=== PATIENT | female | born 1980 | race Caucasian/White ===

== ENCOUNTER 2018-05-05 15:10 | Emergency (ER) | payer OTHER ==
--- NOTE | 2018-05-05 17:41 | ED ---
Anxiety HPI - General Chief Complaint: Anxiety Stated Complaint: Anxiety Time Seen by Provider: 05/05/18 16:48 Source: patient Mode of arrival: ambulatory - History of Present Illness Initial Comments: 37-year-old female past history of anxiety and OCD presents today for chief complaint of uncontrolled obsessive-compulsive thoughts. Patient states that she recently changed doctors and has been off her medications for 2 months, she was recently resumed on her medications one week ago. She states her medications are Prozac and triptel. She states that about a month ago there was an incident at work which causes increased anxiety, she states that since her obsessive thoughts and compulsions have been taking overlying. She states she has to, a certain number for everything including when getting out of bed, while turning on and off lights, she states she has washed her hands for a certain amount of times and uses safe phrases with family or she has significant intrusion of negative thoughts as though something terrible was going to happen to her family or herself. Patient states she is unable to control these and her medications do not seem to be helping. Patient states she has tried Xanax in the past however this only worsened symptoms. Patient does see a psychiatrist Dr. Mock. Patient states today her up since the thoughts have been out of control, she states she has severe feeling of impeding doom. She has not been able to control compulsions with a fourths. Patient states his affect her life she is unable to get out of bed she has not gone to work in a week and a half. Patient presents today for evaluation, denies any previous hospitalizations. Remainder of ROS negative, patient denies any recent fever, chills, shortness of breath, chest pain, back pain, abdominal pain, nausea or vomiting, numbness or tingling, dysuria or hematuria, constipation or diarrhea, headaches or visual changes, or any other complaints. Patient denies any suicidal or homicidal ideations. - Related Data Home Medications: Home Medications Medication Instructions Recorded Confirmed FLUoxetine HCL [PROzac] 40 mg PO HS 05/05/18 05/05/18 OXcarbazepine [Trileptal] 150 mg PO BID 05/05/18 05/05/18 Previous Rx's Medication Instructions Recorded Sulfamethox-Tmp 800-160Mg [Bactrim 1 tab PO Q12HR 7 Days #14 tab 05/05/18 DS 800-160 mg] Allergies/Adverse Reactions: Allergies Allergy/AdvReac Type Severity Reaction Status Date / Time kiwi Allergy Unknown Verified 05/05/18 16:55 Penicillins Allergy Unknown Verified 05/05/18 16:55 Review of Systems ROS Statement: Those systems with pertinent positive or pertinent negative responses have been documented in the HPI. ROS Other: All systems not noted in ROS Statement are negative. Past Medical History Past Medical History: No Reported History History of Any Multi-Drug Resistant Organisms: None Reported Past Surgical History: No Surgical Hx Reported Past Psychological History: Anxiety, Bipolar, Depression Smoking Status: Never smoker Past Alcohol Use History: None Reported Past Drug Use History: None Reported General Exam - General Exam Comments Initial Comments: General: The patient is awake and alert, clenching jaw Eye: Pupils are equal, round and reactive to light, extra-ocular movements are intact. No nystagmus. There is normal conjunctiva bilaterally. No signs of icterus. Ears, nose, mouth and throat: There are moist mucous membranes and no oral lesions. Neck: The neck is supple, there is no tenderness or JVD. Cardiovascular: There is a regular rate and rhythm. No murmur, rub or gallop is appreciated. Respiratory: Lungs are clear to auscultation, respirations are non-labored, breath sounds are equal. No wheezes, stridor, rales, or rhonchi. Gastrointestinal: Soft, non-distended, non-tender abdomen without masses or organomegaly noted. There is no rebound or guarding present. Musculoskeletal: Normal ROM, no tenderness. Strength 5/5. Sensation intact. Pulses equal bilaterally 2+. Neurological: A&O x 3. CN II-XII intact, There are no obvious motor or sensory deficits. Coordination appears grossly intact. Speech is normal. Skin: Skin is warm and dry and no rashes or lesions are noted. Psychiatric: Cooperative, appropriate mood & affect, normal judgment. Limitations: no limitations Course Vital Signs 05/05/18 15:32 Temperature 97.9 F Pulse Rate 97 Respiratory 16 Rate Blood Pressure 132/89 O2 Sat by Pulse 97 Oximetry Medical Decision Making - Medical Decision Making 37-year-old presenting for OCD sitting today for chief complaint of worsening obsessive compulsive ideations and actions. Patient states she has been off her medications for over 2 months. She just resumed her Prozac for the past week. This is not a therapeutic amount of time. Pt has psychiatrist but presented for worsening symptoms. pt medically cleared for EPS evaluation. urinalysis revealed bacteria, and leukocyte esterase we'll treat with Bactrim. Psych recommended discharge with outpatient therapy. Patient was given resources. Patient states she prefers outpatient treatment versus inpatient. At this time A couple changing medications I recommended patient follow-up with psychiatrist. Patient was given 1 mg of Ativan by mouth for anxiety. Patient states this helped a little bit but not much. I did discuss the case attending provider Dr. Nixon. At this time he is agreeable discharge and plan. Patient discharged stable condition appearing well continued to deny any suicidal or homicidal ideations. - Lab Data Lab Results 05/05/18 Range/Units 17:54 Urine Color Yellow Urine Appearance Turbid H (Clear) Urine pH 5.5 (5.0-8.0) Ur Specific [place] 1.028 (1.001-1.035) Urine Protein 1+ H (Negative) Urine Glucose (UA) Negative (Negative) Urine Ketones 1+ H (Negative) Urine Blood Trace H (Negative) Urine Nitrite Negative (Negative) Urine Bilirubin Negative (Negative) Urine Urobilinogen 2.0 (<2.0) mg/dL Ur Leukocyte Esterase Large H (Negative) Urine RBC 38 H (0-5) /hpf Urine WBC 128 H (0-5) /hpf Ur Squamous Epith Cells 13 H (0-4) /hpf Urine Bacteria Many H (None) /hpf Urine Mucus Many H (None) /hpf Urine Opiates Screen Not Detected (NotDetected) Ur Oxycodone Screen Not Detected (NotDetected) Urine Methadone Screen Not Detected (NotDetected) Ur Propoxyphene Screen Not Detected (NotDetected) Ur Barbiturates Screen Not Detected (NotDetected) U Tricyclic Antidepress Not Detected (NotDetected) Ur Phencyclidine Scrn Not Detected (NotDetected) Ur Amphetamines Screen Not Detected (NotDetected) U Methamphetamines Scrn Not Detected (NotDetected) U Benzodiazepines Scrn Not Detected (NotDetected) Urine Cocaine Screen Not Detected (NotDetected) U Marijuana (THC) Screen Not Detected (NotDetected) Disposition Clinical Impression: OCD (obsessive compulsive disorder), UTI (urinary tract infection) Disposition: HOME SELF-CARE Instructions (If sedation given, give patient instructions): Obsessive Compulsive Disorder (DC), Generalized Anxiety Disorder (ED) Additional Instructions: Please use medication as discussed. Please follow-up with your family doctor and psychiatrist. Please use resources as provided by EPS nurse.. Please return to emergency room if the symptoms increase or worsen or for any other concerns. Prescriptions: Sulfamethox-Tmp 800-160Mg [Bactrim DS 800-160 mg] 1 tab PO Q12HR 7 Days #14 tab Is patient prescribed a controlled substance at d/c from ED?: No Referrals: Holden Rose MD [Primary Care Provider] - 1-2 days Time of Disposition: 19:00
[2018-05-05] MEDS ORDERED: LORazepam 1 MG TAB PO STA (18:34)
[2018-05-05 18:41] LABS: Appearance,Urine Turbid (Clear); Bacteria,Urine Many /hpf; Bilirubin,Urine Negative (Negative); Blood,Urine Trace (Negative); Color,Urine Yellow; Glucose,Urine (UA) Negative (Negative); Ketones,Urine 1+ (Negative); Leukocyte Esterase,Urine Large (Negative); Mucus,Urine Many /hpf; Nitrite,Urine Negative (Negative); PH, Urine 5.5 (5.0-8.0); Protein,Urine 1+ (Negative); RBC,Urine 38 /hpf (0-5); Specific Gravity,Urine 1.028 (1.001-1.035); Squamous Epithelial Cell,Urine 13 /hpf (0-4); WBC,Urine 128 /hpf (0-5)
[2018-05-05 18:46] LABS: Amphetamine Screen,Urine Not Detected (NotDetected); Barbiturate Screen,Urine Not Detected (NotDetected); Benzodiazepines Screen,Urine Not Detected (NotDetected); Cocaine Screen,Urine Not Detected (NotDetected); Methadone Screen, Urine Not Detected (NotDetected); Opiate Screen,Urine Not Detected (NotDetected); Oxycodone Screen, Urine Not Detected (NotDetected); Phencyclidine Screen,Urine Not Detected (NotDetected); Tricyclic Antidepressant,Urine Not Detected (NotDetected); Urn Cannabinoid Scrn Not Detected (NotDetected)
[2018-05-05 19:31] VITALS: BP 136/89; PULSE 92; RESP 18; TEMP 98.6
== END 2018-05-05 19:30 | disposition home or self-care (01) ==
LOC: EC 15:10
DX: F42.9 Obsessive-compulsive disorder, unspecified (principal); N39.0 Urinary tract infection, site not specified; F41.9 Anxiety disorder, unspecified; F32.9 Major depressive disorder, single episode, unspecified; Z79.899 Other long term (current) drug therapy; Z91.018 Allergy to other foods; Z88.0 Allergy status to penicillin
CPT/HCPCS: 80306; 81001; 99283

== ENCOUNTER 2019-01-07 15:57 | Emergency (ER) | payer OTHER ==
[2019-01-07 16:16] VITALS: BP 123/77; PULSE 92; RESP 18; TEMP 97.9
[2019-01-07] MEDS ORDERED: HYDROcodone/APAP 5-325MG 1 EACH TAB PO STA (16:20)
--- NOTE | 2019-01-07 16:58 | XR ---
EXAMINATION TYPE: XR ankle complete LT DATE OF EXAM: 01/07/2019 COMPARISON: NONE HISTORY: Fall. Pain. TECHNIQUE: 3 views FINDINGS: There is soft tissue swelling over the lateral malleolus. Ankle mortise is anatomic. Joint spaces are normal. IMPRESSION: Soft tissue swelling. No fracture seen.
--- NOTE | 2019-01-07 17:00 | XR ---
EXAMINATION TYPE: XR tibia fibula LT DATE OF EXAM: 01/07/2019 COMPARISON: NONE HISTORY: Pain. Injury. TECHNIQUE: 4 views FINDINGS: Tibia and fibula appear intact. I see no fracture nor dislocation. Joint spaces are normal. There is soft tissue swelling over the lateral malleolus. IMPRESSION: Soft tissue swelling. No fracture.
--- NOTE | 2019-01-07 17:01 | XR ---
EXAMINATION TYPE: XR foot complete LT DATE OF EXAM: 01/07/2019 COMPARISON: NONE HISTORY: Pain TECHNIQUE: 3 views FINDINGS: Metatarsals are intact. I see no fracture nor dislocation. Joint spaces are normal. IMPRESSION: Negative left foot exam. No fracture seen.
--- NOTE | 2019-01-07 17:10 | ED ---
General Adult HPI - General Chief complaint: Extremity Injury, Lower Stated complaint: LEFT ANKLE INJURY Time Seen by Provider: 01/07/19 16:15 Source: patient, family, RN notes reviewed, old records reviewed Mode of arrival: wheelchair Limitations: physical limitation - History of Present Illness Initial comments: This is a 38-year-old female present emergency department today with a old left ankle. Patient reports that she was sitting on a couch, and her leg fell asleep. Patient reports that then she stood up, and rolled her left ankle. Complains of pain radiating towards her leg. Patient has had no previous broken bones with a history of sprains of this ankle before. She reports that she does have some pain going up the lower leg. - Related Data Home Medications Medication Instructions Recorded Confirmed ARIPiprazole [Abilify] 5 mg PO HS 01/07/19 01/07/19 FLUoxetine HCL [PROzac] 80 mg PO DAILY 01/07/19 01/07/19 clonazePAM 2 mg PO HS 01/07/19 01/07/19 clonazePAM [KlonoPIN] 0.5 mg PO QAM 01/07/19 01/07/19 Previous Rx's Medication Instructions Recorded Ibuprofen [Motrin] 600 mg PO Q6HR PRN #20 tab 01/07/19 Allergies Allergy/AdvReac Type Severity Reaction Status Date / Time Penicillins Allergy Rash/Hives Verified 01/07/19 16:56 kiwi AdvReac Nausea & Verified 01/07/19 16:56 Vomiting Review of Systems ROS Statement: Those systems with pertinent positive or pertinent negative responses have been documented in the HPI. ROS Other: All systems not noted in ROS Statement are negative. Past Medical History Past Medical History: No Reported History History of Any Multi-Drug Resistant Organisms: None Reported Past Surgical History: No Surgical Hx Reported Past Psychological History: Anxiety, Bipolar, Depression Smoking Status: Never smoker Past Alcohol Use History: None Reported Past Drug Use History: None Reported General Exam - General Exam Comments Initial Comments: 38-year-old female. No distress. Limitations: physical limitation General appearance: alert, in no apparent distress Head exam: Present: atraumatic Eye exam: Present: normal appearance, PERRL, EOMI. Absent: scleral icterus, conjunctival injection, periorbital swelling ENT exam: Present: normal exam, mucous membranes moist Neck exam: Present: normal inspection. Absent: tenderness, meningismus, lymphadenopathy Respiratory exam: Present: normal lung sounds bilaterally. Absent: respiratory distress, wheezes, rales, rhonchi, stridor Cardiovascular Exam: Present: regular rate, normal rhythm, normal heart sounds. Absent: systolic murmur, diastolic murmur, rubs, gallop, clicks GI/Abdominal exam: Present: soft, normal bowel sounds. Absent: distended, tenderness, guarding, rebound, rigid Extremities exam: Present: normal inspection, full ROM, normal capillary refill. Absent: tenderness, pedal edema, joint swelling, calf tenderness Left Lower Leg exam: Present: normal inspection, full ROM, tenderness Ankle exam: Absent: normal inspection, full ROM (Chest pain with plantar dorsiflexion. Evidence of significant swelling over the lateral malleolus.) Foot/Toe exam: Present: normal inspection Neurovascular tendon exam: Present: no vascular compromise Gait: observed and normal Back exam: Present: normal inspection Neurological exam: Present: alert, oriented X3, CN II-XII intact Psychiatric exam: Present: normal affect, normal mood Course Vital Signs 01/07/19 16:12 Temperature 97.9 F Pulse Rate 92 Respiratory 18 Rate Blood Pressure 123/77 O2 Sat by Pulse 97 Oximetry Medical Decision Making - Medical Decision Making 38-year-old female presents today for evaluation for left ankle pain after she rolled it. She reports her leg fell asleep and she sitting on the couch and stood up, and had a lateral rolled her ankle. She has diffuse swelling over lateral malleolus, pain junk with plantar dorsiflexion. She states the pain radiating up her leg. Tib-fib x-ray was completed as well as foot and ankle. No evidence of acute fracture but evidence of soft tissue swelling is noted. She is neurovascularly intact. Patient is given Duane wrap and ankle stirrup Aircast. Discussed the Patient follow-up with primary care doctor or so. All questions were answered. - Radiology Data Radiology results: report reviewed Negative left foot exam. No fracture noted. X-ray of the tib-fib shows evidence of soft tissue swelling. No acute fractures. Ankle x-ray shows soft tissue swelling. No acute fracture seen. Disposition Clinical Impression: Ankle sprain Disposition: HOME SELF-CARE Condition: Good Instructions (If sedation given, give patient instructions): Ankle Sprain (ED) Additional Instructions: Please use medication as discussed. Please follow up with family doctor and ortho if symptoms have not improved over the next two days. Please return to the emergency room if your symptoms increase or worsen or for any other concerns. Prescriptions: Ibuprofen [Motrin] 600 mg PO Q6HR PRN #20 tab PRN Reason: Pain Is patient prescribed a controlled substance at d/c from ED?: No Referrals: Holden Rose MD [Primary Care Provider] - 1-2 days Ki West MD [STAFF PHYSICIAN] - 1-2 days Time of Disposition: 17:09
== END 2019-01-07 17:30 | disposition home or self-care (01) ==
LOC: EC 15:57
DX: S93.402A Sprain of unspecified ligament of left ankle, initial encounter (principal); F31.9 Bipolar disorder, unspecified; F41.9 Anxiety disorder, unspecified; Z88.0 Allergy status to penicillin; Z91.018 Allergy to other foods; Z79.899 Other long term (current) drug therapy; W18.39XA Other fall on same level, initial encounter; Y93.89 Activity, other specified; Y92.009 Unspecified place in unspecified non-institutional (private) residence as the place of occurrence of the external cause
CPT/HCPCS: 99284

== ENCOUNTER 2020-03-06 11:58 | Emergency (ER) | payer OTHER ==
[2020-03-06 12:03] VITALS: BP 121/82; PULSE 91; RESP 18; TEMP 98.2
--- NOTE | 2020-03-06 12:08 | ED ---
Extremity Problem HPI - General Chief complaint: Extremity Problem,Nontraumatic Stated complaint: hip pain Time Seen by Provider: 03/06/20 12:07 Source: patient Mode of arrival: ambulatory Limitations: no limitations - History of Present Illness Initial comments: 39-year-old female presenting to the emergency department with a chief complaint of left hip pain. Patient reports his diet well for the past 3 weeks. Patient reports the pain is exacerbated whenever she is walking, particularly whenever getting up the stairs. 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 States that she has been working more hours than usual lately. Reports the pain starts at the left hip and radiates distally. Reports the pain is sharp in nature and exacerbated with weightbearing. Alleviated at rest. Denies back pain and abdominal pain. Denies any urinary or vaginal symptoms. Denies any previous injuries. Denies any overlying skin changes. - Related Data Home Medications Medication Instructions Recorded Confirmed ARIPiprazole [Abilify] 5 mg PO HS 01/07/19 03/06/20 FLUoxetine HCL [PROzac] 80 mg PO DAILY 01/07/19 03/06/20 clonazePAM 2 mg PO HS 01/07/19 03/06/20 clonazePAM [KlonoPIN] 0.5 mg PO QAM 01/07/19 03/06/20 Allergies Allergy/AdvReac Type Severity Reaction Status Date / Time Penicillins Allergy Rash/Hives Verified 03/06/20 12:30 kiwi AdvReac Nausea & Verified 03/06/20 12:30 Vomiting Review of Systems ROS Statement: Those systems with pertinent positive or pertinent negative responses have been documented in the HPI. ROS Other: All systems not noted in ROS Statement are negative. Past Medical History Past Medical History: No Reported History History of Any Multi-Drug Resistant Organisms: None Reported Past Surgical History: No Surgical Hx Reported Past Psychological History: Anxiety, Bipolar, Depression Smoking Status: Former smoker Past Alcohol Use History: None Reported Past Drug Use History: None Reported General Exam Limitations: no limitations General appearance: alert, in no apparent distress, obese Head exam: Present: atraumatic, normal inspection Eye exam: Present: normal appearance, PERRL, EOMI Pupils: Present: normal accommodation ENT exam: Present: normal exam, normal oropharynx, mucous membranes moist, TM's normal bilaterally, normal external ear exam Neck exam: Present: normal inspection, full ROM. Absent: tenderness Respiratory exam: Present: normal lung sounds bilaterally. Absent: respiratory distress, wheezes, rales Cardiovascular Exam: Present: regular rate, normal rhythm, normal heart sounds. Absent: systolic murmur, diastolic murmur GI/Abdominal exam: Present: soft. Absent: distended, tenderness, guarding, rebound Extremities exam: Present: normal inspection, full ROM (Slight limitation in range of motion of the left hip due to pain), tenderness (Tenderness along the anterior lateral aspect of the left hip.), normal capillary refill, other (+2 dorsalis pedis and posterior tibials bilaterally.). Absent: pedal edema, joint swelling, calf tenderness Back exam: Present: normal inspection, full ROM. Absent: tenderness, CVA tenderness (R), CVA tenderness (L), muscle spasm, paraspinal tenderness, vertebral tenderness Neurological exam: Present: alert, oriented X3 Psychiatric exam: Present: normal affect, normal mood Skin exam: Present: warm, dry, intact, normal color Course Vital Signs 03/06/20 11:59 Temperature 98.2 F Pulse Rate 91 Respiratory 18 Rate Blood Pressure 121/82 O2 Sat by Pulse 97 Oximetry Medical Decision Making - Medical Decision Making 39-year-old female presenting to the emergency department with a chief complaint of left hip pain. On physical examination, she has localized tenderness over the left hip. X-rays unremarkable. She has developed this over the past 3 weeks because she has been working more than usual hours. She stands for prolonged periods of time at her work. I suspect this is trochanteric bursitis. Patient was given some anti-inflammatories and emergency department. She was advised to take anti-inflammatory medication for the next 5 days. Strict return parameters were thoroughly discussed the patient is understanding and agreeable. Advised to follow-up with orthopedic doctor if symptoms not improved. Case discussed with physician. Disposition Clinical Impression: Hip bursitis, left Disposition: HOME SELF-CARE Condition: Stable Instructions (If sedation given, give patient instructions): Hip Bursitis (ED) Additional Instructions: Take anti-inflammatory medication for the next 5 days to alleviate the symptoms. Avoid standing for prolonged periods of time. Follow with an education specialist if symptoms not improved. Is patient prescribed a controlled substance at d/c from ED?: No Referrals: Holden Rose MD [Primary Care Provider] - 1-2 days Time of Disposition: 12:38
[2020-03-06] MEDS ORDERED: KETOROLAC 15 MG/ML 1 ML VIAL IM STA (12:16)
--- NOTE | 2020-03-06 12:28 | XR ---
EXAMINATION TYPE: XR Hip Complete LT DATE OF EXAM: 03/06/2020 COMPARISON: NONE HISTORY: Hip pain TECHNIQUE: 2 views FINDINGS: I see no fracture nor dislocation. Joint spaces are normal. Hip joint space is normal. IMPRESSION: Normal left hip exam.
== END 2020-03-06 13:10 | disposition home or self-care (01) ==
LOC: EC 11:58
DX: M70.72 Other bursitis of hip, left hip (principal); F41.9 Anxiety disorder, unspecified; F31.9 Bipolar disorder, unspecified; Z79.899 Other long term (current) drug therapy; Z88.0 Allergy status to penicillin; Z91.018 Allergy to other foods; Z87.891 Personal history of nicotine dependence
CPT/HCPCS: 73502; 99283; 96372; J1885

== ENCOUNTER → 2020-12-29 | Outpatient (CLI) | payer OTHER ==
--- NOTE | 2020-12-29 16:48 | XR ---
Right ankle HISTORY: Calcaneal spur, pain 3 views of the right ankle Soft tissue swelling is present. Bone mineralization, joint spaces and alignment are maintained. Ther e is an enthesophyte at insertion of the Achilles tendon. Minimal plantar spur suspected. IMPRESSION: Findings of the posterior calcaneus as described, soft tissue swelling.
--- NOTE | 2020-12-29 16:50 | XR ---
Right foot HISTORY: Pain 3 views the right foot Bone mineralization, joint spaces and alignment are maintained. There is soft tissue swelling present . A minute plantar calcaneal spur suspected. Mild soft tissue swelling. No fracture or dislocation. IMPRESSION: Small plantar calcaneal spur.
== END | disposition home or self-care (01) ==
LOC: RADXRMAIN 13:22
PROVIDERS: ATTEND Nurse Practitioner
DX: M77.31 Calcaneal spur, right foot (principal)

== ENCOUNTER 2021-02-28 19:57 | Observation (INO) | payer OTHER ==
[2021-02-28] MEDS ORDERED: MORPHINE SULFATE 4 MG/ML SYRINGE IV STA (20:21)
[2021-02-28] MEDS ORDERED: SODIUM CHLORIDE 0.9% 1,000 ML IV STA (20:21)
[2021-02-28] MEDS ORDERED: ONDANSETRON 4 MG/2 ML VIAL IVP STA (20:21)
[2021-02-28 21:11] LABS: Basophils % (A) 0 %; Eosinophils # (A) 0.2 k/uL (0-0.7); Eosinophils % (A) 2 %; HCT 41.3 % (34.0-46.0); HGB 13.2 gm/dL (11.4-16.0); Lymphocytes # (A) 1.5 k/uL (1.0-4.8); Lymphocytes % (A) 13 %; MCH 29.6 pg (25.0-35.0); MCHC 32.1 g/dL (31.0-37.0); MCV 92.4 fL (80.0-100.0); Mean Platelet Volume 8.1; Monocytes # (A) 0.4 k/uL (0-1.0); Monocytes % (A) 4 %; Neutrophils # (A) 9.7 k/uL (1.3-7.7); Neutrophils % (A) 80 %; Platelet Count 319 k/uL (150-450); RBC 4.47 m/uL (3.80-5.40); RDW 14.6 % (11.5-15.5); WBC 12.1 k/uL (3.8-10.6)
[2021-02-28 21:22] LABS: ALT 25 U/L (4-34); AST 26 U/L (14-36); African American GFR (CKD) >90 (>60 ml/min/1.73 sqM); Albumin 3.7 g/dL (3.5-5.0); Alkaline Phosphatase 112 U/L (38-126); Anion Gap 8 mmol/L; Blood Urea Nitrogen 16 mg/dL (7-17); Calcium 9.3 mg/dL (8.4-10.2); Carbon Dioxide 24 mmol/L (22-30); Chloride 105 mmol/L (98-107); Glucose 105 mg/dL (74-99); Lipase 229 U/L (23-300); Non-African American GFR(CKD) >90 (>60 ml/min/1.73 sqM); Potassium 4.2 mmol/L (3.5-5.1); Sodium 137 mmol/L (137-145); Total Bilirubin 0.2 mg/dL (0.2-1.3); Total Protein 6.8 g/dL (6.3-8.2)
[2021-02-28 21:36] LABS: Appearance,Urine Cloudy (Clear); Bacteria,Urine Rare /hpf; Bilirubin,Urine Negative (Negative); Blood,Urine Negative (Negative); Color,Urine Yellow; Glucose,Urine (UA) Negative (Negative); Ketones,Urine Negative (Negative); Leukocyte Esterase,Urine Large (Negative); Mucus,Urine Rare /hpf; Nitrite,Urine Negative (Negative); PH, Urine 5.5 (5.0-8.0); Protein,Urine Trace (Negative); RBC,Urine 7 /hpf (0-5); Specific Gravity,Urine 1.027 (1.001-1.035); Squamous Epithelial Cell,Urine 29 /hpf (0-4); Urobilinogen,Urine <2.0 mg/dL (<2.0); WBC,Urine 23 /hpf (0-5)
--- NOTE | 2021-02-28 22:15 | US ---
EXAMINATION TYPE: US abdomen limited DATE OF EXAM: 02/28/2021 COMPARISON: NONE CLINICAL HISTORY: RUQ. RUQ pain. EXAM MEASUREMENTS: Liver Length: 20.01 cm Gallbladder Wall: 0.17 cm CBD: 0.49 cm Right Kidney: 11.4 x 6.9 x 4.7 cm Limited due to patient body habitus and gas. Pancreas: Not well seen due to overlying bowel gas. Liver: Appears enlarged. Increased echogenicity and attenuation. Two hypoechoic areas seen near the gallbladder, larger area measures 2.3 x 1.2 x 1.8 cm. Gallbladder: Hyperechoic focus seen within the neck measuring 0.6 x 0.5 x 0.3 cm. Not seen after pat ient turned LLD in transverse views. Evidence for sonographic West's sign: No. CBD: Portions seen appear wnl. Right Kidney: No hydronephrosis or masses seen IMPRESSION: There is probably a gallstone at the gallbladder neck. There is no sign of gallbladder wall thickenin g. No dilated ducts. No discrete liver mass. There is probably some fatty infiltration of the liver.
--- NOTE | 2021-02-28 22:52 | ED ---
Abdominal Pain HPI - General Chief Complaint: Abdominal Pain Stated Complaint: Abdominal Pain Time Seen by Provider: 02/28/21 20:16 Source: patient Mode of arrival: ambulatory Limitations: no limitations - History of Present Illness Initial Comments: 40 year-old female patient presents for right upper quadrant pain with radiation to back. States she has had bilateral arm pain, nausea, no appetite. Symptoms started 3-4 days ago. She denies any chest pain, shortness of breath, fever, or chills. Denies history of abdominal surgery. Denies constipation or diarrhea. Denies any hematuria, dysuria, urinary frequency, urinary urgency. Denies chance of . - Related Data Home Medications Medication Instructions Recorded Confirmed ARIPiprazole [Abilify] 5 mg PO HS 01/07/19 02/28/21 FLUoxetine HCL [PROzac] 80 mg PO DAILY 01/07/19 02/28/21 clonazePAM 2 mg PO HS 01/07/19 02/28/21 clonazePAM [KlonoPIN] 0.5 mg PO QAM 01/07/19 02/28/21 Omeprazole 20 mg PO DAILY PRN 02/28/21 02/28/21 Allergies Allergy/AdvReac Type Severity Reaction Status Date / Time Penicillins Allergy Rash/Hives Verified 02/28/21 22:30 kiwi AdvReac Nausea & Verified 02/28/21 22:30 Vomiting Review of Systems ROS Statement: Those systems with pertinent positive or pertinent negative responses have been documented in the HPI. ROS Other: All systems not noted in ROS Statement are negative. Past Medical History Past Medical History: No Reported History History of Any Multi-Drug Resistant Organisms: None Reported Past Surgical History: No Surgical Hx Reported Past Psychological History: Anxiety, Bipolar, Depression Smoking Status: Former smoker Past Alcohol Use History: None Reported Past Drug Use History: None Reported General Exam Limitations: no limitations General appearance: alert, in no apparent distress, other (This a well- developed, well-nourished adult female in no acute distress.) ENT exam: Present: normal exam, normal oropharynx, mucous membranes moist Respiratory exam: Present: normal lung sounds bilaterally. Absent: respiratory distress, wheezes, rales, rhonchi, stridor Cardiovascular Exam: Present: normal rhythm, tachycardia, normal heart sounds. Absent: systolic murmur, diastolic murmur, rubs, gallop, clicks GI/Abdominal exam: Present: soft, tenderness (Right upper quadrant), normal bowel sounds. Absent: distended, guarding, rebound, rigid Neurological exam: Present: alert, oriented X3, CN II-XII intact Psychiatric exam: Present: normal affect, normal mood Skin exam: Present: warm, dry, intact, normal color. Absent: rash Course Vital Signs 02/28/21 02/28/21 02/28/21 19:58 20:51 22:30 Temperature 98.4 F Pulse Rate 106 H 109 H 85 Respiratory 20 22 18 Rate Blood Pressure 136/81 134/80 124/72 O2 Sat by Pulse 99 98 96 Oximetry 02/28/21 23:35 Temperature 98.5 F Pulse Rate 96 Respiratory 18 Rate Blood Pressure 135/84 O2 Sat by Pulse 96 Oximetry Medical Decision Making - Medical Decision Making 40-year-old female patient presents to the emergency department for evaluation of right upper quadrant abdominal pain radiating through to her back. Symptoms started 3 days ago. Physical examination did reveal right upper quadrant midepigastric tenderness. Labs reviewed and did reveal mildly elevated white blood cell count at 12.1. Ultrasound showed a gallstone in the neck of the gallbladder. Case was discussed with on-call surgeon Dr. Ocampo he recommends admission with IV antibiotics and nothing by mouth. I did discuss findings and results with the patient. She is agreeable. My attending is Dr. Landeros. - Lab Data Result diagrams: 02/28/21 20:51 02/28/21 20:51 Lab Results 02/28/21 02/28/21 02/28/21 Range/Units 20:51 20:51 20:51 WBC 12.1 H (3.8-10.6) k/uL RBC 4.47 (3.80-5.40) m/uL Hgb 13.2 (11.4-16.0) gm/dL Hct 41.3 (34.0-46.0) % MCV 92.4 (80.0-100.0) fL MCH 29.6 (25.0-35.0) pg MCHC 32.1 (31.0-37.0) g/dL RDW 14.6 (11.5-15.5) % Plt Count 319 (150-450) k/uL MPV 8.1 Neutrophils % 80 % Lymphocytes % 13 % Monocytes % 4 % Eosinophils % 2 % Basophils % 0 % Neutrophils # 9.7 H (1.3-7.7) k/uL Lymphocytes # 1.5 (1.0-4.8) k/uL Monocytes # 0.4 (0-1.0) k/uL Eosinophils # 0.2 (0-0.7) k/uL Basophils # 0.0 (0-0.2) k/uL Sodium 137 (137-145) mmol/L Potassium 4.2 (3.5-5.1) mmol/L Chloride 105 (98-107) mmol/L Carbon Dioxide 24 (22-30) mmol/L Anion Gap 8 mmol/L BUN 16 (7-17) mg/dL Creatinine 0.78 (0.52-1.04) mg/dL Est GFR (CKD-EPI)AfAm >90 (>60 ml/min/1.73 sqM) Est GFR (CKD-EPI)NonAf >90 (>60 ml/min/1.73 sqM) Glucose 105 H (74-99) mg/dL Plasma Lactic Acid Leonidas (0.7-2.0) mmol/L Calcium 9.3 (8.4-10.2) mg/dL Total Bilirubin 0.2 (0.2-1.3) mg/dL AST 26 (14-36) U/L ALT 25 (4-34) U/L Alkaline Phosphatase 112 (38-126) U/L Troponin I (0.000-0.034) ng/mL Total Protein 6.8 (6.3-8.2) g/dL Albumin 3.7 (3.5-5.0) g/dL Lipase 229 (23-300) U/L Urine Color Yellow Urine Appearance Cloudy H (Clear) Urine pH 5.5 (5.0-8.0) Ur Specific [place] 1.027 (1.001-1.035) Urine Protein Trace H (Negative) Urine Glucose (UA) Negative (Negative) Urine Ketones Negative (Negative) Urine Blood Negative (Negative) Urine Nitrite Negative (Negative) Urine Bilirubin Negative (Negative) Urine Urobilinogen <2.0 (<2.0) mg/dL Ur Leukocyte Esterase Large H (Negative) Urine RBC 7 H (0-5) /hpf Urine WBC 23 H (0-5) /hpf Ur Squamous Epith Cells 29 H (0-4) /hpf Urine Bacteria Rare H (None) /hpf Urine Mucus Rare H (None) /hpf 02/28/21 02/28/21 Range/Units 20:51 20:51 WBC (3.8-10.6) k/uL RBC (3.80-5.40) m/uL Hgb (11.4-16.0) gm/dL Hct (34.0-46.0) % MCV (80.0-100.0) fL MCH (25.0-35.0) pg MCHC (31.0-37.0) g/dL RDW (11.5-15.5) % Plt Count (150-450) k/uL MPV Neutrophils % % Lymphocytes % % Monocytes % % Eosinophils % % Basophils % % Neutrophils # (1.3-7.7) k/uL Lymphocytes # (1.0-4.8) k/uL Monocytes # (0-1.0) k/uL Eosinophils # (0-0.7) k/uL Basophils # (0-0.2) k/uL Sodium (137-145) mmol/L Potassium (3.5-5.1) mmol/L Chloride (98-107) mmol/L Carbon Dioxide (22-30) mmol/L Anion Gap mmol/L BUN (7-17) mg/dL Creatinine (0.52-1.04) mg/dL Est GFR (CKD-EPI)AfAm (>60 ml/min/1.73 sqM) Est GFR (CKD-EPI)NonAf (>60 ml/min/1.73 sqM) Glucose (74-99) mg/dL Plasma Lactic Acid Leonidas 0.9 (0.7-2.0) mmol/L Calcium (8.4-10.2) mg/dL Total Bilirubin (0.2-1.3) mg/dL AST (14-36) U/L ALT (4-34) U/L Alkaline Phosphatase (38-126) U/L Troponin I <0.012 (0.000-0.034) ng/mL Total Protein (6.3-8.2) g/dL Albumin (3.5-5.0) g/dL Lipase (23-300) U/L Urine Color Urine Appearance (Clear) Urine pH (5.0-8.0) Ur Specific [place] (1.001-1.035) Urine Protein (Negative) Urine Glucose (UA) (Negative) Urine Ketones (Negative) Urine Blood (Negative) Urine Nitrite (Negative) Urine Bilirubin (Negative) Urine Urobilinogen (<2.0) mg/dL Ur Leukocyte Esterase (Negative) Urine RBC (0-5) /hpf Urine WBC (0-5) /hpf Ur Squamous Epith Cells (0-4) /hpf Urine Bacteria (None) /hpf Urine Mucus (None) /hpf - EKG Data -: EKG Interpreted by Me EKG Comments: EKG obtained at 2107 shows normal sinus rhythm with a ventricular rate of 88, HI interval 126, QRS duration 82, QT 374, QTC 452. No evidence of ST elevation or depression. - Radiology Data Radiology results: report reviewed, image reviewed Ultrasound of the abdomen is obtained. Report was reviewed in its entirety. Impression by Dr. Okeefe shows probably a gallstone at the gallbladder neck. No sign of gallbladder wall thickening. No dilated ducts. No discrete liver mass. There is probably some fatty infiltration of the liver. Disposition Clinical Impression: Cholelithiasis, Abdominal pain Disposition: ADMITTED IP TO THIS [facility] Condition: Serious Decision to Admit Reason: Admit from EC Decision Date: 02/28/21 Decision Time: 23:00
[2021-02-28] MEDS ORDERED: ONDANSETRON 4 MG/2 ML VIAL IVP PRN (22:57)
[2021-02-28] MEDS ORDERED: NALOXONE 0.4 MG/ML 1 ML VIAL IV PRN (22:57)
[2021-02-28] MEDS ORDERED: metroNIDAZOLE-NS PMX 500 MG in SALINE 1 100ML.BAG IVPB STA (22:58)
[2021-02-28] MEDS ORDERED: LEVOFLOXACIN 750MG-D5W PMX 750 MG in DEXTROSE/WATER 1 150ML.BAG IVPB STA (22:58)
[2021-02-28] MEDS ORDERED: TRIMETHOBENZAMIDE 100 MG/ML 2 ML VIAL IM PRN (23:00)
[2021-02-28] MEDS: SODIUM CHLORIDE 0.9% 1,000 ML IV SCH (23:22)
[2021-02-28] MEDS: MORPHINE SULFATE 4 MG/ML SYRINGE IV PRN (23:26)
[2021-02-28] MEDS: LEVOFLOXACIN 750MG-D5W PMX 750 MG in DEXTROSE/WATER 1 150ML.BAG IVPB SCH (23:56)
[2021-03-01] MEDS: MORPHINE SULFATE 4 MG/ML SYRINGE IV PRN (06:15)
[2021-03-01] MEDS ORDERED: ONDANSETRON 4 MG/2 ML VIAL IVP PRN (08:30)
[2021-03-01] MEDS: metroNIDAZOLE-NS PMX 500 MG in SALINE 1 100ML.BAG IVPB SCH ×3 (08:45→19:35)
--- NOTE | 2021-03-01 09:20 | P.GSHP ---
History of Present Illness H&P Date: 03/01/21 CHIEF COMPLAINT: Abdominal pain HISTORY OF PRESENT ILLNESS: This is a 40-year-old female who presented to hospital with complaint of right upper quadrant abdominal pain for the past 3 days. She also has been having nausea. She reports that the pain radiates to her back. She denies any vomiting. She has been having chills. Denies any fever. Ultrasound had shown probable gallstone at the gallbladder neck. Patient mildly tachycardic with elevated white count on admission. PAST MEDICAL HISTORY: Anxiety, bipolar, depression PAST SURGICAL HISTORY: None MEDICATIONS: See list. ALLERGIES: See list. SOCIAL HISTORY: No illicit drug use. REVIEW OF SYSTEMS: CONSTITUTIONAL: Denies fever or chills. HEENT: Denies blurred vision, vision changes, or eye pain. Denies hemoptysis CARDIOVASCULAR: Denies chest pain or pressure. RESPIRATORY: No shortness of breath. GASTROINTESTINAL: See HPI for pertinent findings HEMATOLOGIC: Denies bleeding disorders. GENITOURINARY: Denies any blood in urine or increased urinary frequency. SKIN: Denies pruitis. Denies rash. PHYSICAL EXAM: VITAL SIGNS: Reviewed GENERAL: Well-developed in no acute distress. HEENT: No sclera icterus. Extraocular movements grossly intact. Moist buccal mucosa. Head is atraumatic, normocephalic. No nasal drainage. ABDOMEN: Soft. Nondistended. Right upper quadrant tenderness with palpation NEUROLOGIC: Alert and oriented. Cranial nerves II through XII grossly intact. LABORATORY DATA: WBC 12.1 Hgb 13.2 platelets 319 Sodium 137 potassium 4.2 BUN 16 creatinine 0.78 Lactic acid 0.9 LFTs normal Lipase normal COVID-19 not detected Urine hCG negative IMAGING: Abdominal ultrasound demonstrates probably a gallstone at the gallbladder neck. There is no sign of gallbladder wall thickening. No dilated ducts. No discrete liver mass. There is probably some fatty infiltration of the liver. ASSESSMENT: 1. Acute cholecystitis 2. Cholelithiasis with ultrasound demonstrating gallstone at the gallbladder neck PLAN: -Patient scheduled for laparoscopic cholecystectomy today with Dr. kerr -Keep patient nothing by mouth -Start antibiotics -Continue IV fluids -Continue pain medication and antiemetics as needed Physician Body Technician note has been reviewed by physician. Signing provider agrees with the documented findings, assessment, and plan of care. Past Medical History Past Medical History: No Reported History History of Any Multi-Drug Resistant Organisms: None Reported Past Surgical History: No Surgical Hx Reported Past Psychological History: Anxiety, Bipolar, Depression Smoking Status: Former smoker Past Alcohol Use History: None Reported Past Drug Use History: None Reported Medications and Allergies Home Medications Medication Instructions Recorded Confirmed Type ARIPiprazole [Abilify] 5 mg PO HS 01/07/19 02/28/21 History FLUoxetine HCL [PROzac] 80 mg PO DAILY 01/07/19 02/28/21 History clonazePAM 2 mg PO HS 01/07/19 02/28/21 History clonazePAM [KlonoPIN] 0.5 mg PO QAM 01/07/19 02/28/21 History Omeprazole 20 mg PO DAILY PRN 02/28/21 02/28/21 History Allergies Allergy/AdvReac Type Severity Reaction Status Date / Time Penicillins Allergy Rash/Hives Verified 02/28/21 22:30 kiwi AdvReac Nausea & Verified 02/28/21 22:30 Vomiting Surgical - Exam Vital Signs Temp Pulse Resp BP Pulse Ox 98.4 F 106 H 20 136/81 99 02/28/21 19:58 02/28/21 19:58 02/28/21 19:58 02/28/21 19:58 02/28/21 19:58 Results - Labs 02/28/21 20:51 02/28/21 20:51 Abnormal Lab Results - Last 24 Hours (Table) 02/28/21 02/28/21 02/28/21 Range/Units 20:51 20:51 20:51 WBC 12.1 H (3.8-10.6) k/uL Neutrophils # 9.7 H (1.3-7.7) k/uL Glucose 105 H (74-99) mg/dL Urine Appearance Cloudy H (Clear) Urine Protein Trace H (Negative) Ur Leukocyte Esterase Large H (Negative) Urine RBC 7 H (0-5) /hpf Urine WBC 23 H (0-5) /hpf Ur Squamous Epith Cells 29 H (0-4) /hpf Urine Bacteria Rare H (None) /hpf Urine Mucus Rare H (None) /hpf Microbiology - Last 24 Hours (Table) 02/28/21 20:51 Urine Culture - Preliminary Urine,Clean Catch Diabetes panel 02/28/21 Range/Units 20:51 Sodium 137 (137-145) mmol/L Potassium 4.2 (3.5-5.1) mmol/L Chloride 105 (98-107) mmol/L Carbon Dioxide 24 (22-30) mmol/L BUN 16 (7-17) mg/dL Creatinine 0.78 (0.52-1.04) mg/dL Glucose 105 H (74-99) mg/dL Calcium 9.3 (8.4-10.2) mg/dL AST 26 (14-36) U/L ALT 25 (4-34) U/L Alkaline Phosphatase 112 (38-126) U/L Total Protein 6.8 (6.3-8.2) g/dL Albumin 3.7 (3.5-5.0) g/dL Calcium panel 02/28/21 Range/Units 20:51 Calcium 9.3 (8.4-10.2) mg/dL Albumin 3.7 (3.5-5.0) g/dL Pituitary panel 02/28/21 Range/Units 20:51 Sodium 137 (137-145) mmol/L Potassium 4.2 (3.5-5.1) mmol/L Chloride 105 (98-107) mmol/L Carbon Dioxide 24 (22-30) mmol/L BUN 16 (7-17) mg/dL Creatinine 0.78 (0.52-1.04) mg/dL Glucose 105 H (74-99) mg/dL Calcium 9.3 (8.4-10.2) mg/dL Adrenal panel 02/28/21 Range/Units 20:51 Sodium 137 (137-145) mmol/L Potassium 4.2 (3.5-5.1) mmol/L Chloride 105 (98-107) mmol/L Carbon Dioxide 24 (22-30) mmol/L BUN 16 (7-17) mg/dL Creatinine 0.78 (0.52-1.04) mg/dL Glucose 105 H (74-99) mg/dL Calcium 9.3 (8.4-10.2) mg/dL Total Bilirubin 0.2 (0.2-1.3) mg/dL AST 26 (14-36) U/L ALT 25 (4-34) U/L Alkaline Phosphatase 112 (38-126) U/L Total Protein 6.8 (6.3-8.2) g/dL Albumin 3.7 (3.5-5.0) g/dL
[2021-03-01] MEDS ORDERED: IV FLUID CONTINUATION 300 ML IV ONE (09:53)
[2021-03-01] MEDS ORDERED: HEPARIN SODIUM,PORCINE/PF 5,000 UNIT/0.5 ML SYRINGE SQ ONE (10:07)
[2021-03-01] MEDS ORDERED: DEXAMETHASONE SOD PHOSPHATE 4 MG/ML 1 ML VIAL IV ONE (10:08)
[2021-03-01] MEDS ORDERED: ONDANSETRON 4 MG/2 ML VIAL IVP ONE (10:09)
[2021-03-01] MEDS ORDERED: HEPARIN SODIUM,PORCINE 5,000 UNIT/ML 1 ML VIAL SQ ONE (10:09)
[2021-03-01] MEDS ORDERED: BUPIVACAIN-EPI 0.25%-1:200,000 30 ML VIAL SQ ONE ×2 (10:11→10:37)
[2021-03-01] MEDS ORDERED: fentaNYL (PF) 50 MCG/ML 2 ML AMP ONE (10:13)
[2021-03-01] MEDS ORDERED: GLYCOPYRROLATE 0.2 MG/ML 2 ML VIAL ONE (10:13)
[2021-03-01] MEDS ORDERED: SUCCINYLCHOLINE CHLORIDE 100 MG/5 ML SYR IV ONE (10:13)
[2021-03-01] MEDS ORDERED: ROCURONIUM 10 MG/ML (5 ML VIAL) IV ONE (10:13)
[2021-03-01] MEDS ORDERED: PROPOFOL 10 MG/ML 20 ML VIAL IV ONE (10:13)
[2021-03-01] MEDS ORDERED: KETOROLAC 15 MG/ML 1 ML VIAL ONE (10:13)
[2021-03-01] MEDS ORDERED: NEOSTIGMINE 1 MG/ML 10 ML VIAL ONE (10:13)
[2021-03-01] MEDS ORDERED: LIDOCAINE 1% INJ 10MG/ML (20 ML MDV) ONE (10:13)
[2021-03-01] MEDS ORDERED: MIDAZOLAM 2 MG/2 ML VIAL ONE (10:13)
[2021-03-01] MEDS ORDERED: HYDROmorphone (PF) 1 MG/ML ONE (10:13)
[2021-03-01] MEDS ORDERED: LACTATED RINGERS 1,000 ML IV ONE (10:45)
--- NOTE | 2021-03-01 11:01 | P.OP ---
Date of Procedure: 03/01/21 Preoperative Diagnosis: Acute cholecystitis Postoperative Diagnosis: Acute cholecystitis Procedure(s) Performed: Laparoscopic cholecystectomy Anesthesia: REANNA Surgeon: Senthil Ocampo Estimated Blood Loss (ml): 5 Pathology: other (Gallbladder) Condition: stable Disposition: PACU Description of Procedure: The patient was placed on the operating table. The patient received a general endotracheal tube anesthesia. The patients abdomen was prepped and draped in the usual sterile fashion. Through an infraumbilical stab incision, the fascia of the anterior abdominal wall was grasped with a pair of Kochers and then the Veress needle was placed in the peritoneal cavity. Position of the Veress needle was confirmed with positive drop test. The abdomen was then insufflated. After adequate insufflation, the 10 mm trocar was placed in the peritoneal cavity. Following this the laparoscope was placed in the peritoneal cavity. The patient was placed in the head-up, right side up position and then a 5 mm trocar was placed in the right lateral and right subcostal position under direct visualization. A 8 mm trocar was placed in the epigastric position. The gallbladder was grasped in the fundus and infundibulum. Traction on the gallbladder was placed in the lateral and the cephalad positions. The triangle of Calot was visualized.. The cystic duct was bluntly dissected until the union of the cystic duct and common bile duct was seen. A critical view of safety was achieved. The cystic duct was then divided and sealed with the Harmonic scissors. A PDS Endoloop was then placed throughout the cystic duct stump. The cystic artery divided and sealed with the Harmonic scissors. The gallbladder was then removed from the liver bed using Harmonic scissors. The gallbladder was then extracted through the epigastric port site. Operative field was checked for any bleeding spots and Harmonic scissors was used to coagulate the liver bed. The abdomen was irrigated. The trocars were removed. The skin was closed using interrupted 3-0 Vicryl suture. Dermabond dressing were applied. The patient tolerated the procedure well.
[2021-03-01] MEDS: SODIUM CHLORIDE 0.9% 1,000 ML IV SCH (13:01)
[2021-03-01] MEDS ORDERED: HYDROcodone/APAP 5-325MG 1 EACH TAB PO PRN (14:59)
--- NOTE | 2021-03-01 15:04 | P.DS ---
Providers Date of admission: 02/28/21 22:57 Expected date of discharge: 03/01/21 Attending physician: Senthil Ocampo Primary care physician: Holden Rose Hospital Course: Discharge diagnosis 1. Acute cholecystitis status post laparoscopic cholecystectomy Hospital course This is a 40-year-old female who presented to hospital with complaint of right upper quadrant abdominal pain for the past 3 days. She also has been having nausea. She reports that the pain radiates to her back. She denies any vomiting. She has been having chills. Denies any fever. Ultrasound had shown probable gallstone at the gallbladder neck. Patient mildly tachycardic with elevated white count on admission. Patient is status post laparoscopic cholecystectomy. She tolerated surgery well. Her pain is controlled. She is tolerating diet. She has been up and ambulating. She is afebrile. She is stable for discharge. Please refer to chart for any further details. Physician Histopathology Technician note has been reviewed by physician. Signing provider agrees with the documented findings, assessment, and plan of care. Patient Condition at Discharge: Stable Plan - Discharge Summary New Discharge Prescriptions: New HYDROcodone/APAP 5-325MG [[place] 5-325] 1 tab PO Q6HR PRN 3 Days #12 tab PRN Reason: Pain Continue clonazePAM [KlonoPIN] 0.5 mg PO QAM clonazePAM 2 mg PO HS FLUoxetine HCL [PROzac] 80 mg PO DAILY ARIPiprazole [Abilify] 5 mg PO HS Omeprazole 20 mg PO DAILY PRN PRN Reason: Gi Upset Discharge Medication List ARIPiprazole [Abilify] 5 mg PO HS 01/07/19 [History] FLUoxetine HCL [PROzac] 80 mg PO DAILY 01/07/19 [History] clonazePAM 2 mg PO HS 01/07/19 [History] clonazePAM [KlonoPIN] 0.5 mg PO QAM 01/07/19 [History] Omeprazole 20 mg PO DAILY PRN 02/28/21 [History] HYDROcodone/APAP 5-325MG [[place] 5-325] 1 tab PO Q6HR PRN 3 Days #12 tab 03/01/21 [Rx] Follow up Appointment(s)/Referral(s): Holden Rose MD [Primary Care Provider] - 1-2 days Senthil Ocampo MD [STAFF PHYSICIAN] - 1 Week Activity/Diet/Wound Care/Special Instructions: No driving while taking Derby No lifting over 10 pounds You may shower. No soaking or tub baths for 2 weeks Very light activity until you are reevaluated at your follow up appointment with your surgeon Discharge Disposition: HOME SELF-CARE
[2021-03-01] MEDS: PANTOPRAZOLE 40 MG/10 ML VIAL IVP SCH ×2 (18:16→18:19)
[2021-03-01] MEDS: HEPARIN SODIUM,PORCINE/PF 5,000 UNIT/0.5 ML SYRINGE SQ SCH (19:36)
[2021-03-01] MEDS ORDERED: ARIPiprazole 5 MG TAB PO SCH (21:00)
[2021-03-01] MEDS ORDERED: clonazePAM 1 MG TAB PO SCH (21:00)
--- NOTE | 2021-03-01 21:58 | CONS ---
CONSULTATION DATE OF SERVICE: 03/01/2021. REASON FOR CONSULTATION: Advice regarding anxiety, bipolar and other medical conditions, requested by Dr. Ocampo. HISTORY OF PRESENT ILLNESS: This 40-year-old woman with a past medical history of anxiety, bipolar, depression, being followed by Dr. Rose in the outpatient setting, was complaining of abdominal pain. The patient was evaluated and Dr. Ocampo performed laparoscopic cholecystectomy for acute cholecystitis. Patient is being closely monitored. There is no history of any fever, rigors or chills. No history of headache, loss of consciousness, seizures at this time. White count is 12.1. PAST MEDICAL HISTORY: History of anxiety, bipolar, depression. HOME MEDICATIONS: Omeprazole, Klonopin, Prozac, Abilify, [place]. Doses are noted. ALLERGIES: PENICILLIN, KIWI. FAMILY HISTORY: No history of heart disease or strokes in the family. SOCIAL HISTORY: Previous history of smoking. No current smoking or current alcohol intake. REVIEW OF SYSTEMS: ENT: No diminished hearing. No diminished vision. CARDIOVASCULAR SYSTEM: No angina, palpitations. RESPIRATORY SYSTEM: No cough, hemoptysis. GI: As mentioned earlier. : No dysuria. NERVOUS SYSTEM: No numbness, weakness. ALLERGY/IMMUNOLOGY: No asthma or hay fever. MUSCULOSKELETAL: As mentioned earlier. HEMATOLOGY/ONCOLOGY: No history of anemia. ENDOCRINE: No history of diabetes or hypothyroidism. CONSTITUTIONAL: As mentioned earlier. DERMATOLOGY: Negative. RHEUMATOLOGY: Negative. PSYCHIATRY: As mentioned earlier. PHYSICAL EXAMINATION: Patient alert and oriented x3. Pulse is 88, blood pressure 111/72, respiration 20, temperature 97.2, pulse ox 92% on room air. HEENT: Conjunctivae normal. NECK: No jugular venous distention. CARDIOVASCULAR: S1, S2 muffled. RESPIRATION: Breath sounds diminished at the bases. No rhonchi. No crackles. ABDOMEN: Soft. Status post surgery. No mass palpable. tenderness as expected. No guarding. No rigidity. Bowel sounds diminished. LEGS: No edema. No swelling. NERVOUS SYSTEM: Higher functions as mentioned earlier. Moves all 4 limbs. No focal motor or sensory deficit. LYMPHATICS: No lymph node palpable in neck, axillae or groin. SKIN: No ulcer, rash, bleeding. JOINTS: No active deforming arthropathy. LABS: WBC 12.1, sodium 137, potassium 4.2. UA noted. ASSESSMENT: 1. Acute cholecystitis, status post laparoscopic cholecystectomy. 2. Possible acute urinary tract infection, present on admission. 3. Anxiety, bipolar, depression. 4. Increased white count. 5. History of nicotine dependence. RECOMMENDATIONS AND DISCUSSION: In this 40-year-old woman who presented with multiple medical issues, we will monitor the patient closely, continue the current medications, continue symptomatic treatment. I recommend empiric antibiotics, DVT prophylaxis. Closely follow with Surgery. Pain medications. Resume the home medications. Prognosis guarded because of multiple complex issues. The patient may be asked to follow up with primary physician in the outpatient setting. Thank you, Dr. Ocampo, for letting us participate in the care of this patient. MMODL / IJN: [id number] / SINA
[2021-03-01] MEDS: LEVOFLOXACIN 750MG-D5W PMX 750 MG in DEXTROSE/WATER 1 150ML.BAG IVPB SCH (23:35)
[2021-03-02] MEDS: SODIUM CHLORIDE 0.9% 1,000 ML IV SCH (02:19)
[2021-03-02] MEDS: metroNIDAZOLE-NS PMX 500 MG in SALINE 1 100ML.BAG IVPB SCH ×2 (02:19→08:36)
[2021-03-02 02:22] VITALS: PULSE 71; TEMP 98.2
[2021-03-02 07:44] VITALS: BP 124/81; RESP 15
[2021-03-02] MEDS: PANTOPRAZOLE 40 MG/10 ML VIAL IVP SCH (08:39)
[2021-03-02] MEDS: HEPARIN SODIUM,PORCINE/PF 5,000 UNIT/0.5 ML SYRINGE SQ SCH (08:40)
[2021-03-02] MEDS ORDERED: clonazePAM 0.5 MG TAB PO SCH (09:00)
[2021-03-02] MEDS ORDERED: FLUoxetine HCL 20 MG CAP PO SCH (09:00)
[2021-03-02 09:39] LABS: Basophils # (A) 0.03 X 10*3/uL (0.00-0.10); Basophils % (A) 0.3 %; Eosinophils # (A) 0.02 X 10*3/uL (0.04-0.35); Eosinophils % (A) 0.2 %; HCT 37.4 % (37.2-46.3); HGB 11.4 g/dL (12.0-15.0); Lymphocytes # (A) 1.29 X 10*3/uL (0.90-5.00); Lymphocytes % (A) 12.9 %; MCH 28.3 pg (27.0-32.0); MCHC 30.5 g/dL (32.0-37.0); MCV 92.8 fL (80.0-97.0); Mean Platelet Volume 11.4 fL (9.5-12.2); Monocytes # (A) 0.72 X 10*3/uL (0.20-1.00); Monocytes % (A) 7.2 %; Neutrophils # (A) 7.89 X 10*3/uL (1.80-7.70); Neutrophils % (A) 78.9 %; Platelet Count 292 X 10*3/uL (140-440); RBC 4.03 X 10*6/uL (4.10-5.20); RDW 15.1 % (11.5-14.5)
[2021-03-02 10:43] LABS: African American GFR (CKD) 108.4 (60.0-200.0); Blood Urea Nitrogen 12.8 mg/dL (9.0-27.0); Calcium 9.1 mg/dL (8.7-10.3); Non-African American GFR(CKD) 93.5 (60.0-200.0)
--- NOTE | 2021-03-03 09:01 | P.PN ---
Subjective Progress Note Date: 03/02/21 This is a 40-year-old female who was recently admitted with abdominal pain and being closely monitored. Patient was admitted to surgical services as patient recently underwent laparoscopic cholecystectomy for acute cholecystitis. She had a mildly elevated white blood count on admission. Patient states she is feeling better and less abdominal pain and tolerating diet. White blood count has improved this morning and patient remains afebrile. Patient was continued on IV levaquin and Flagyl and will monitor the urine culture closely. Urine culture completed showing normal joanne. Labs: WBC is 10.0, hemoglobin is 11.4, platelets are 292, sodium is 140, potassium is 4.0, BUN is 12.8, creatinine is 0.8, calcium is 9.1, urine culture showing genital joanne Review of systems: Constitutional: No reports of fatigue, fever, or chills Cardiovascular: No reports of chest pain or palpitations Respiratory: No reports of shortness of breath or cough GI: No reports of nausea, vomiting, or diarrhea, reports abdominal discomfort although slightly improved : No reports of dysuria or retention Neurovascular: No reports of weakness or numbness All medications have been reviewed Physical Exam: Gen: This is a 40-year-old female who is awake, alert and oriented 3, well- developed, well-nourished. Morbidly obese Temp is 98.2 F, pulse is 71, respirations are 15, blood pressure is 124/81, oxygen saturation is 95% on room air HEENT: Head is atraumatic, normocephalic. Pupils equal, round. Sclerae is anicteric. NECK: Supple. No JVD. No lymphadenopathy. No thyromegaly. LUNGS: Diminished breath sounds bilaterally with no wheezing or rhonchi noted. No intercostal retractions. HEART: S1, S2 are muffled ABDOMEN: Soft. Obese. Bowel sounds are present. No masses. No tenderness. EXTREMITIES: No pedal edema. No calf tenderness. NEUROLOGICAL: Patient is awake, alert and oriented x3. Cranial nerves 2 through 12 are grossly intact. Assessment: Acute cholecystitis, status post laparoscopic cholecystectomy Possible acute urinary tract infection, present on admission Anxiety, bipolar, depression Increased white blood count History of nicotine dependence GI prophylaxis DVT prophylaxis full code Plan: Recommend to continue with current medications and management. Pain management per surgical services. Patient is tolerating diet with no further reports of abdominal discomfort. Patient was continued on IV Levaquin, Flagyl and urine culture resulted showing normal joanne and antibiotics being discontinued. Patient encouraged to follow-up with primary care provider along with surgery in the outpatient setting. White blood count improved at 10.0 and patient remains afebrile. Will continue to follow along with surgery during hospitalization. Due to multiple complex medical issues, prognosis is guarded. Further recommendations to follow based on the clinical course of the patient. Patient is being discharged today. Objective - Vital Signs Vital signs: Vital Signs Temp 98.2 F 03/02/21 07:05 Pulse 71 03/02/21 07:05 Resp 15 03/02/21 07:05 BP 124/81 03/02/21 07:05 Pulse Ox 95 03/02/21 07:05 Intake & Output 03/01/21 03/02/21 03/02/21 18:59 06:59 18:59 Intake Total 754 Output Total 5 Balance 749 Intake: IV 400 Oral 354 Output: Estimated Blood Loss 5 Other: # Voids 2 - Labs CBC & Chem 7: 03/02/21 05:59 03/02/21 05:59 Labs: Abnormal Lab Results - Last 24 Hours (Table) 03/02/21 Range/Units 05:59 RBC 4.03 L (4.10-5.20) X 10*6/uL Hgb 11.4 L (12.0-15.0) g/dL MCHC 30.5 L (32.0-37.0) g/dL RDW 15.1 H (11.5-14.5) % Immature Gran # 0.05 H (0.00-0.04) X 10*3/uL Neutrophils # 7.89 H (1.80-7.70) X 10*3/uL Eosinophils # 0.02 L (0.04-0.35) X 10*3/uL Microbiology - Last 24 Hours (Table) 02/28/21 23:15 Blood Culture - Preliminary Blood No Growth after 24 hours 02/28/21 23:00 Blood Culture - Preliminary Blood No Growth after 24 hours 02/28/21 20:51 Urine Culture - Final Urine,Clean Catch
== END 2021-03-02 09:51 | disposition home or self-care (01) ==
LOC: EC 19:57 → 6NMEDSUR 22:57
PROVIDERS: ADMIT Surgery; ATTEND Surgery
DX: K80.12 Calculus of gallbladder with acute and chronic cholecystitis without obstruction (principal); F31.9 Bipolar disorder, unspecified; F41.9 Anxiety disorder, unspecified; Z20.822 Contact with and (suspected) exposure to COVID-19; Z79.899 Other long term (current) drug therapy; Z91.018 Allergy to other foods; Z88.0 Allergy status to penicillin; Z87.891 Personal history of nicotine dependence
CPT/HCPCS: 96376 ×2; 96361; 96374; 96375; 99285; 36415; 93005; 81025 ×2; 88304; 80053; 80048; 83605; 83690; 84484; 85025 ×2; 81001; 87040; 87086; 87635; 76705; 47562; G0378 ×3; J2250; J2270 ×2; J1644 ×2; J1100; J2710; J2405 ×2; J2001; J3010; J1170; J1956 ×2; J1885; J0330; J2704; C9113 ×2

== ENCOUNTER 2021-07-10 20:38 | Emergency (ER) | payer OTHER ==
[2021-07-10 22:20] VITALS: RESP 20
--- NOTE | 2021-07-10 22:51 | XR ---
EXAMINATION TYPE: XR foot complete LT DATE OF EXAM: 07/10/2021 COMPARISON: NONE HISTORY: Foot pain TECHNIQUE: 3 views FINDINGS: Metatarsals are intact. I see no fracture nor dislocation. Joint spaces are normal. IMPRESSION: Negative left foot exam. No fracture.
--- NOTE | 2021-07-10 22:53 | XR ---
EXAMINATION TYPE: XR ankle complete LT DATE OF EXAM: 07/10/2021 COMPARISON: NONE HISTORY: Pain TECHNIQUE: 3 views FINDINGS: There is soft tissue swelling over the lateral malleolus. Ankle mortise is anatomic. I see no fracture. Joint spaces are normal. IMPRESSION: Soft tissue swelling. No fracture seen.
--- NOTE | 2021-07-10 23:12 | ED ---
Lower Extremity Injury HPI - General Chief Complaint: Extremity Injury, Lower Stated Complaint: Left Ankle Pain Time Seen by Provider: 07/10/21 23:09 Source: patient Mode of arrival: ambulatory Limitations: no limitations - History of Present Illness Initial Comments: This patient is 32-year-old woman who presents to have evaluation of left ankle injury. She states that she had an inversion type injury of the left ankle earlier today. Just around noon. Patient able to partially bear weight. When symptoms did not resolve she felt she should be evaluated. MD Complaint: ankle injury -: hour(s) Injury: Ankle: Left Place: home Severity: moderate Improves With: immobilization Worsens With: weight bearing Associated Symptoms: snap/pop sensation, swelling - Related Data Home Medications Medication Instructions Recorded Confirmed ARIPiprazole [Abilify] 5 mg PO HS 01/07/19 02/28/21 FLUoxetine HCL [PROzac] 80 mg PO DAILY 01/07/19 02/28/21 clonazePAM 2 mg PO HS 01/07/19 02/28/21 clonazePAM [KlonoPIN] 0.5 mg PO QAM 01/07/19 02/28/21 Omeprazole 20 mg PO DAILY PRN 02/28/21 02/28/21 Previous Rx's Medication Instructions Recorded HYDROcodone/APAP 5-325MG [[place] 1 tab PO Q6HR PRN 3 Days #12 tab 03/01/21 5-325] Allergies Allergy/AdvReac Type Severity Reaction Status Date / Time Penicillins Allergy Rash/Hives Verified 07/10/21 22:20 kiwi AdvReac Nausea & Verified 07/10/21 22:20 Vomiting Review of Systems ROS Statement: Those systems with pertinent positive or pertinent negative responses have been documented in the HPI. ROS Other: All systems not noted in ROS Statement are negative. Musculoskeletal: Reports: joint swelling, arthralgia Neurological: Denies: weakness, numbness, paresthesias Past Medical History Past Medical History: No Reported History Additional Past Medical History / Comment(s): OCD, Anxiety History of Any Multi-Drug Resistant Organisms: None Reported Past Surgical History: Cholecystectomy Past Psychological History: Anxiety, Bipolar, Depression Smoking Status: Former smoker Past Alcohol Use History: None Reported Past Drug Use History: None Reported General Exam Limitations: no limitations General appearance: alert, in no apparent distress Left Hip exam: Present: normal inspection, full ROM. Absent: tenderness, swelling Upper Leg exam: Present: normal inspection, full ROM. Absent: tenderness, swelling Knee exam: Present: normal inspection, full ROM. Absent: tenderness, swelling Lower Leg exam: Present: normal inspection, full ROM. Absent: tenderness, swelling Ankle exam: Present: full ROM, tenderness, swelling. Absent: abrasion, laceration, ecchymosis, deformity, crepitus, dislocation, erythema Foot/Toe exam: Present: full ROM, swelling. Absent: tenderness, abrasion, laceration, ecchymosis, deformity, crepitus, dislocation, erythema, amputation, puncture wound, foreign body, calcaneal tenderness, tenderness at base of 5th metatarsal, nail avulsion, subungual hematoma Neurovascular tendon exam: Present: no vascular compromise. Absent: pulse deficit, abnormal cap refill, motor deficit, sensory deficit, tendon deficit, extremity cold to touch Neurological exam: Present: alert. Absent: motor sensory deficit Course Vital Signs 07/10/21 22:15 Temperature 98.0 F Pulse Rate 104 H Respiratory 20 Rate Blood Pressure 129/73 O2 Sat by Pulse 96 Oximetry Disposition Clinical Impression: Ankle sprain Disposition: HOME SELF-CARE Condition: Good Instructions (If sedation given, give patient instructions): Ankle Sprain (ED) Is patient prescribed a controlled substance at d/c from ED?: No Referrals: Holden Rose MD [Primary Care Provider] - 1-2 days
[2021-07-11 00:04] VITALS: BP 133/79; PULSE 78; TEMP 98
== END 2021-07-11 00:04 | disposition home or self-care (01) ==
LOC: EC 20:38
DX: S93.402A Sprain of unspecified ligament of left ankle, initial encounter (principal); F31.9 Bipolar disorder, unspecified; F41.9 Anxiety disorder, unspecified; Z87.891 Personal history of nicotine dependence; Z79.899 Other long term (current) drug therapy; X50.1XXA Overexertion from prolonged static or awkward postures, initial encounter; Y92.009 Unspecified place in unspecified non-institutional (private) residence as the place of occurrence of the external cause
CPT/HCPCS: 73610; 73630; 99283; L4350

== ENCOUNTER → 2021-12-06 | Outpatient (CLI) | payer OTHER ==
[2021-12-06 15:35] LABS: African American GFR (CKD) 99.3 (60.0-200.0); Albumin/Globulin Ratio 1.16 (1.60-3.17); Anion Gap 13.5 mmol/L (10.00-18.00); BUN/Creat Ratio 18.13 Ratio (12.00-20.00); Blood Urea Nitrogen 15.5 mg/dL (9.0-27.0); Calcium 9.2 mg/dL (8.7-10.3); Carbon Dioxide 21.7 mmol/L (20.0-27.5); Globulin 3.5 g/dL (1.6-3.3); Non-African American GFR(CKD) 85.7 (60.0-200.0); Potassium 3.7 mmol/L (3.5-5.5); Total Bilirubin 0.4 mg/dL (0.30-1.20); Total Protein 7.5 g/dL (6.2-8.2)
== END | disposition home or self-care (01) ==
LOC: LABWHC1 09:58
PROVIDERS: ATTEND Family Medicine
DX: R73.9 Hyperglycemia, unspecified (principal)
CPT/HCPCS: 36415; 80053; 83036; 84443; 86803

== ENCOUNTER 2021-12-30 22:16 | Emergency (ER) | payer OTHER ==
[2021-12-31 00:09] VITALS: TEMP 98.3
[2021-12-31 01:49] LABS: Basophils # (A) 0.1 k/uL (0-0.2); Basophils % (A) 1 %; Eosinophils # (A) 0.2 k/uL (0-0.7); Eosinophils % (A) 2 %; HCT 40.7 % (34.0-46.0); HGB 13.4 gm/dL (11.4-16.0); Hypochromasia Slight; Lymphocytes # (A) 1.7 k/uL (1.0-4.8); Lymphocytes % (A) 13 %; MCH 29.8 pg (25.0-35.0); MCHC 32.9 g/dL (31.0-37.0); MCV 90.6 fL (80.0-100.0); Mean Platelet Volume 8.6; Monocytes # (A) 0.7 k/uL (0-1.0); Monocytes % (A) 5 %; Neutrophils # (A) 10.3 k/uL (1.3-7.7); Neutrophils % (A) 79 %; Platelet Count 347 k/uL (150-450); RBC 4.49 m/uL (3.80-5.40); RDW 14.3 % (11.5-15.5); WBC 13.2 k/uL (3.8-10.6)
[2021-12-31 01:53] LABS: INR 0.9 (<1.2); Partial Thromboplastin Time 24.6 sec (22.0-30.0); Prothrombin Time 9.6 sec (9.0-12.0)
[2021-12-31 02:08] LABS: Albumin 4.4 g/dL (3.5-5.0); Calcium 9.7 mg/dL (8.4-10.2); Potassium 4.4 mmol/L (3.5-5.1); Total Bilirubin 0.3 mg/dL (0.2-1.3); Total Protein 7.4 g/dL (6.3-8.2)
--- NOTE | 2021-12-31 04:27 | CT ---
EXAMINATION TYPE: CT abdomen pelvis wo con DATE OF EXAM: 12/31/2021 COMPARISON: None HISTORY: abdominal pain/hematuria CT DLP: 1770.7 mGycm Automated exposure control for dose reduction was used. Images obtained from the diaphragm to the floor the pelvis with no contrast. Lung bases are clear. No pleural effusion. Heart size is normal. No pericardial effusion. Liver splee n and stomach pancreas appear intact. There are clips from cholecystectomy. The bile duct are not dil ated. There is no adrenal mass. Kidneys show normal size and contour. No hydronephrosis. Ureters are not di lated. No retroperitoneal adenopathy. The bladder distends smoothly. No inguinal hernia. No free flui d in the pelvis. No pelvic mass. Uterus is anteverted. The lumbar vertebrae have normal alignment. Posterior element are intact. No compression fracture. [place]er [place] pelvis is intact. The hip joints are intact. There is no mesenteric edema. No ascites or free air. No sign of a bowel obstruction. Appendix is med ial and appears normal. IMPRESSION: Negative CT scan of the abdomen and pelvis. Normal appendix.
--- NOTE | 2021-12-31 04:48 | ED ---
GI Bleed HPI - General Chief complaint: GI Bleed Stated complaint: peeing blood Time Seen by Provider: 12/31/21 00:59 Source: patient Mode of arrival: ambulatory Limitations: no limitations - History of Present Illness Initial comments: This patient is a 41-year-old woman presenting with complaint of passing some bright red blood with bowel movements today. She also had some abdominal cramping. The pain was not localized was diffuse and intermittent. The patient did not have symptoms of anemia, no chest pain, dyspnea, diaphoresis, palpitations, lightheadedness or syncope. MD complaint: blood streaked stool Onset/Timin -: days(s) Quality: cramping Consistency: intermittent Improves with: none Worsens with: none Associated Symptoms: denies other symptoms - Related Data Home Medications Medication Instructions Recorded Confirmed ARIPiprazole [Abilify] 5 mg PO HS 01/07/19 02/28/21 FLUoxetine HCL [PROzac] 80 mg PO DAILY 01/07/19 02/28/21 clonazePAM 2 mg PO HS 01/07/19 02/28/21 clonazePAM [KlonoPIN] 0.5 mg PO QAM 01/07/19 02/28/21 Omeprazole 20 mg PO DAILY PRN 02/28/21 02/28/21 Previous Rx's Medication Instructions Recorded HYDROcodone/APAP 5-325MG [[place] 1 tab PO Q6HR PRN 3 Days #12 tab 03/01/21 5-325] Allergies Allergy/AdvReac Type Severity Reaction Status Date / Time Iodinated Contrast Media Allergy Unknown Verified 12/31/21 04:06 Penicillins Allergy Rash/Hives Verified 12/31/21 00:09 kiwi AdvReac Nausea & Verified 12/31/21 00:09 Vomiting Review of Systems ROS Statement: Those systems with pertinent positive or pertinent negative responses have been documented in the HPI. ROS Other: All systems not noted in ROS Statement are negative. Constitutional: Denies: fever, chills, weakness Respiratory: Denies: cough, dyspnea Cardiovascular: Denies: chest pain, palpitations, dyspnea on exertion, edema, syncope Gastrointestinal: Reports: hematochezia. Denies: abdominal pain, nausea, vomiting, diarrhea, constipation, melena Genitourinary: Denies: dysuria, frequency, hematuria Musculoskeletal: Denies: back pain Skin: Denies: rash Neurological: Denies: headache, weakness Past Medical History Past Medical History: No Reported History Additional Past Medical History / Comment(s): OCD, Anxiety History of Any Multi-Drug Resistant Organisms: None Reported Past Surgical History: Cholecystectomy Past Psychological History: Anxiety, Bipolar, Depression Smoking Status: Former smoker Past Alcohol Use History: None Reported Past Drug Use History: None Reported General Exam Limitations: no limitations General appearance: alert, in no apparent distress Head exam: Present: atraumatic, normocephalic Eye exam: Present: normal appearance. Absent: scleral icterus, conjunctival injection ENT exam: Present: normal oropharynx Neck exam: Present: normal inspection Respiratory exam: Present: normal lung sounds bilaterally. Absent: respiratory distress, wheezes, rales, rhonchi, stridor Cardiovascular Exam: Present: regular rate, normal rhythm, normal heart sounds. Absent: systolic murmur, diastolic murmur, rubs, gallop GI/Abdominal exam: Present: soft. Absent: distended, tenderness, guarding, rebound, rigid, mass Rectal exam: Present: normal inspection, normal rectal tone, heme (-) stool. Absent: black stool, bloody stool, mass, tenderness Extremities exam: Present: normal inspection, normal capillary refill. Absent: pedal edema, calf tenderness Back exam: Present: normal inspection Neurological exam: Present: alert Skin exam: Present: warm, dry, intact, normal color Course Vital Signs 12/31/21 12/31/21 00:07 05:00 Temperature 98.3 F Pulse Rate 92 79 Respiratory 20 18 Rate Blood Pressure 131/91 112/73 O2 Sat by Pulse 95 100 Oximetry Medical Decision Making - Medical Decision Making Patient is 41-year-old woman who had episode of GI bleeding at home. Here there is no further bleeding, and the digital rectal exam does not find any occult blood. I discussed options with patient including seen the post acute care nurse practitioner for outpatient scope versus admission, at this point patient compatible with outpatient workup. Will return should she have any further episodes. Return parameters discussed - Lab Data Result diagrams: 12/31/21 01:10 12/31/21 01:10 Lab Results 12/31/21 12/31/21 12/31/21 Range/Units 01:10 01:10 01:10 WBC 13.2 H (3.8-10.6) k/uL RBC 4.49 (3.80-5.40) m/uL Hgb 13.4 (11.4-16.0) gm/dL Hct 40.7 (34.0-46.0) % MCV 90.6 (80.0-100.0) fL MCH 29.8 (25.0-35.0) pg MCHC 32.9 (31.0-37.0) g/dL RDW 14.3 (11.5-15.5) % Plt Count 347 (150-450) k/uL MPV 8.6 Neutrophils % 79 % Lymphocytes % 13 % Monocytes % 5 % Eosinophils % 2 % Basophils % 1 % Neutrophils # 10.3 H (1.3-7.7) k/uL Lymphocytes # 1.7 (1.0-4.8) k/uL Monocytes # 0.7 (0-1.0) k/uL Eosinophils # 0.2 (0-0.7) k/uL Basophils # 0.1 (0-0.2) k/uL Hypochromasia Slight PT 9.6 (9.0-12.0) sec INR 0.9 (<1.2) APTT 24.6 (22.0-30.0) sec Sodium 140 (137-145) mmol/L Potassium 4.4 (3.5-5.1) mmol/L Chloride 104 (98-107) mmol/L Carbon Dioxide 22 (22-30) mmol/L Anion Gap 14 mmol/L BUN 17 (7-17) mg/dL Creatinine 0.96 (0.52-1.04) mg/dL Est GFR (CKD-EPI)AfAm 86 (>60 ml/min/1.73 sqM) Est GFR (CKD-EPI)NonAf 75 (>60 ml/min/1.73 sqM) Glucose 102 H (74-99) mg/dL Calcium 9.7 (8.4-10.2) mg/dL Total Bilirubin 0.3 (0.2-1.3) mg/dL AST 22 (14-36) U/L ALT 20 (4-34) U/L Alkaline Phosphatase 117 (38-126) U/L Troponin I (0.000-0.034) ng/mL Total Protein 7.4 (6.3-8.2) g/dL Albumin 4.4 (3.5-5.0) g/dL Stool Occult Blood (Negative) Blood Type Blood Type Recheck Bld Type Recheck Status Antibody Screen Spec Expiration Date 12/31/21 12/31/21 12/31/21 Range/Units 01:10 01:10 02:54 WBC (3.8-10.6) k/uL RBC (3.80-5.40) m/uL Hgb (11.4-16.0) gm/dL Hct (34.0-46.0) % MCV (80.0-100.0) fL MCH (25.0-35.0) pg MCHC (31.0-37.0) g/dL RDW (11.5-15.5) % Plt Count (150-450) k/uL MPV Neutrophils % % Lymphocytes % % Monocytes % % Eosinophils % % Basophils % % Neutrophils # (1.3-7.7) k/uL Lymphocytes # (1.0-4.8) k/uL Monocytes # (0-1.0) k/uL Eosinophils # (0-0.7) k/uL Basophils # (0-0.2) k/uL Hypochromasia PT (9.0-12.0) sec INR (<1.2) APTT (22.0-30.0) sec Sodium (137-145) mmol/L Potassium (3.5-5.1) mmol/L Chloride (98-107) mmol/L Carbon Dioxide (22-30) mmol/L Anion Gap mmol/L BUN (7-17) mg/dL Creatinine (0.52-1.04) mg/dL Est GFR (CKD-EPI)AfAm (>60 ml/min/1.73 sqM) Est GFR (CKD-EPI)NonAf (>60 ml/min/1.73 sqM) Glucose (74-99) mg/dL Calcium (8.4-10.2) mg/dL Total Bilirubin (0.2-1.3) mg/dL AST (14-36) U/L ALT (4-34) U/L Alkaline Phosphatase (38-126) U/L Troponin I <0.012 (0.000-0.034) ng/mL Total Protein (6.3-8.2) g/dL Albumin (3.5-5.0) g/dL Stool Occult Blood Negative (Negative) Blood Type A Positive Blood Type Recheck A Pos Bld Type Recheck Status No Antibody Screen NEGATIVE Spec Expiration Date 01/03/20222309 Disposition Clinical Impression: GI bleeding Disposition: HOME SELF-CARE Condition: Good Instructions (If sedation given, give patient instructions): Gastrointestinal Bleeding (ED) Is patient prescribed a controlled substance at d/c from ED?: No Referrals: Holden Rose MD [Primary Care Provider] - 1-2 days Val Leach MD [STAFF PHYSICIAN] - 1-2 days
[2021-12-31 05:01] VITALS: BP 112/73; PULSE 79; RESP 18
== END 2021-12-31 05:10 | disposition home or self-care (01) ==
LOC: EC 22:16
DX: K92.2 Gastrointestinal hemorrhage, unspecified (principal); Z87.891 Personal history of nicotine dependence; Z91.041 Radiographic dye allergy status; Z88.0 Allergy status to penicillin; Z91.018 Allergy to other foods
CPT/HCPCS: 36415; 74176; 80053; 82272; 84484; 85025; 85610; 85730; 86850; 86900; 86901; 99285

== ENCOUNTER → 2022-01-24 | Outpatient (CLI) | payer OTHER ==
[2022-01-24 17:00] LABS: Gliadin AB IgA, Deaminated POSITIVE (NEGATIVE); Gliadin AB IgA, Unit >250.0 U/mL; Gliadin AB IgG, Deaminated POSITIVE (NEGATIVE); Gliadin AB IgG, Unit >250.0 U/mL
== END | disposition home or self-care (01) ==
LOC: LABWHC1 09:20
PROVIDERS: ATTEND Internal Medicine Gastroenterology
DX: K52.9 Noninfective gastroenteritis and colitis, unspecified (principal)
CPT/HCPCS: 36415; 83516

== ENCOUNTER → 2022-06-14 | Outpatient (CLI) | payer OTHER ==
[2022-06-14 10:35] LABS: Basophils # (A) 0.05 X 10*3/uL (0.00-0.10); Basophils % (A) 0.6 %; Eosinophils # (A) 0.16 X 10*3/uL (0.04-0.35); Eosinophils % (A) 1.8 %; HCT 40.7 % (37.2-46.3); HGB 12.6 g/dL (12.0-15.0); Immature Grans, Automated 0.5 %; Lymphocytes % (A) 14.7 %; MCH 28.6 pg (27.0-32.0); MCV 92.3 fL (80.0-97.0); Mean Platelet Volume 11.5 fL (9.5-12.2); Monocytes # (A) 0.81 X 10*3/uL (0.20-1.00); Monocytes % (A) 9.1 %; NRBC Per 100 WBC 0 /100 WBCS (0.0-0.0); Neutrophils # (A) 6.51 X 10*3/uL (1.80-7.70); Neutrophils % (A) 73.3 %; Platelet Count 320 X 10*3/uL (140-440); RBC 4.41 X 10*6/uL (4.10-5.20); RDW 15.9 % (11.5-14.5); WBC 8.87 X 10*3/uL (4.50-10.00)
[2022-06-14 11:13] LABS: ALT 29 U/L (8-44); AST 28 U/L (13-35); African American GFR (CKD) 84.1 (60.0-200.0); Albumin 4.1 g/dL (3.8-4.9); Albumin/Globulin Ratio 1.48 (1.60-3.17); Alkaline Phosphatase 105 U/L (41-126); BUN/Creat Ratio 21.41 Ratio (12.00-20.00); Calcium 9.6 mg/dL (8.7-10.3); Chloride 106 mmol/L (96-109); Chol/HDL Ratio 3.57 Ratio; Globulin 2.8 g/dL (1.6-3.3); Glucose 95 mg/dL (70-110); LDL Cholesterol,Calculated 115.2 mg/dL (0.0-131.0); Non-African American GFR(CKD) 72.6 (60.0-200.0); Potassium 4.8 mmol/L (3.5-5.5); Sodium 142 mmol/L (135-145); Total Protein 6.9 g/dL (6.2-8.2); VLDL Calculation 18.04 mg/dL (5.00-40.00)
--- NOTE | 2022-06-15 08:57 | MM ---
Reason for Exam: Screening (asymptomatic). Baseline mammogram. Patient History: Menarche at age 13. First Full-Term at age 21. Premenopausal. Maternal aunt had breast cancer. Last menstrual period: 05/23/2022 Risk Values: [place] 5 year model risk: 0.4%. NCI Lifetime model risk: 8.1%. Prior Study Comparison: Patient's first Mammogram. Tissue Density: The breast tissue is heterogeneously dense. This may lower the sensitivity of mammography. Findings: Analyzed By CAD. There is no suspicious group of microcalcifications or new suspicious mass in either breast. Overall Assessment: Negative, BI-RAD 1 Management: Screening Mammogram of both breasts in 1 year. A clinical breast exam by your physician is recommended on an annual basis and results should be correlated with mammographic findings. [facility] will attempt to contact patient to return for supplemental views and ultrasound if indicated. Electronically signed and approved by: Alexis Larios DO
[2022-06-15 14:20] LABS: HIV 2 AB Non-Reactive (Non-Reactive); HIV AB P24 Non-Reactive (Non-Reactive); HIV P24 AG Non-Reactive (Non-Reactive)
== END | disposition home or self-care (01) ==
LOC: RADMAMWWP 07:04
PROVIDERS: ATTEND Family Medicine
DX: Z12.31 Encounter for screening mammogram for malignant neoplasm of breast (principal); R03.0 Elevated blood-pressure reading, without diagnosis of hypertension; Z11.4 Encounter for screening for human immunodeficiency virus [HIV]; Z11.59 Encounter for screening for other viral diseases; Z80.3 Family history of malignant neoplasm of breast
CPT/HCPCS: 77067; 80053; 80061; 84443; 85025; 86803; 87390

== ENCOUNTER 2023-02-23 14:05 | Emergency (ER) | payer SELFPAY ==
[2023-02-23 14:16] VITALS: TEMP 98.2
[2023-02-23] MEDS ORDERED: KETOROLAC 15 MG/ML 1 ML VIAL IVP STA (14:22)
--- NOTE | 2023-02-23 14:27 | ED ---
Chest Pain HPI - General Chief Complaint: Chest Pain Stated Complaint: sharp chest pains and arm pains Time Seen by Provider: 02/23/23 14:14 Source: patient, family, RN notes reviewed Mode of arrival: ambulatory Limitations: no limitations - History of Present Illness Initial Comments: This is a 42-year-old female who presents to the emergency department for chest pain. States that this is centralized with possible radiation into the left arm. Pain is described as sharp. She has minor associated shortness of breath. Symptoms started 4 days ago. She has had palpitations related to anxiety in the past, but states that this feels different. Denies any nausea or vomiting. Also denies any personal or family history of cardiac issues. MD Complaint: chest pain - Related Data Home Medications Medication Instructions Recorded Confirmed ARIPiprazole [Abilify] 5 mg PO HS 01/07/19 02/23/23 FLUoxetine HCL [PROzac] 80 mg PO DAILY 01/07/19 02/23/23 clonazePAM 2 mg PO HS 01/07/19 02/23/23 clonazePAM [KlonoPIN] 0.5 mg PO DAILY 01/07/19 02/23/23 Acetaminophen Tab [Tylenol Tab] 1,000 mg PO Q6H PRN 02/23/23 02/23/23 Oxybutynin ER [Ditropan XL] 10 mg PO DAILY 02/23/23 02/23/23 Pantoprazole [Protonix] 40 mg PO DAILY 02/23/23 02/23/23 Allergies Allergy/AdvReac Type Severity Reaction Status Date / Time amoxicillin Allergy Anaphylaxis Verified 02/23/23 15:11 & Rash all over Iodinated Contrast Media Allergy Anaphylaxis Verified 02/23/23 15:11 & Rash all over Penicillins Allergy Rash/Hives Verified 02/23/23 15:11 all over kiwi AdvReac Nausea & Verified 02/23/23 15:11 Vomiting & Rash Review of Systems ROS Statement: Those systems with pertinent positive or pertinent negative responses have been documented in the HPI. ROS Other: All systems not noted in ROS Statement are negative. Past Medical History Past Medical History: No Reported History Additional Past Medical History / Comment(s): OCD, Anxiety celiac History of Any Multi-Drug Resistant Organisms: None Reported Past Surgical History: Cholecystectomy Past Psychological History: Anxiety, Bipolar, Depression Smoking Status: Former smoker Past Alcohol Use History: None Reported Past Drug Use History: None Reported General Exam Limitations: no limitations General appearance: alert, in no apparent distress Head exam: Present: atraumatic, normocephalic, normal inspection Respiratory exam: Present: normal lung sounds bilaterally, chest wall tenderness. Absent: respiratory distress, wheezes, rales, rhonchi, stridor Cardiovascular Exam: Present: regular rate, normal rhythm, normal heart sounds. Absent: systolic murmur, diastolic murmur, rubs, gallop, clicks GI/Abdominal exam: Present: soft, normal bowel sounds. Absent: distended, tenderness, guarding, rebound, rigid Neurological exam: Present: alert, oriented X3, CN II-XII intact Psychiatric exam: Present: normal affect, normal mood Skin exam: Present: warm, dry, intact, normal color. Absent: rash Course Vital Signs 02/23/23 02/23/23 02/23/23 14:08 14:30 15:00 Temperature 98.2 F Pulse Rate 80 69 72 Respiratory 16 18 18 Rate Blood Pressure 128/72 120/75 124/81 O2 Sat by Pulse 98 97 Oximetry 02/23/23 02/23/23 02/23/23 15:30 16:00 16:30 Temperature Pulse Rate 73 76 75 Respiratory 18 17 20 Rate Blood Pressure 129/76 121/66 111/65 O2 Sat by Pulse 98 98 99 Oximetry 02/23/23 02/23/23 02/23/23 17:00 17:30 18:38 Temperature Pulse Rate 76 80 Respiratory 18 18 Rate Blood Pressure 141/75 135/81 134/84 O2 Sat by Pulse 97 Oximetry Chest Pain MDM - MDM This is a 42-year-old female who presents to the emergency department for chest pain. Was pt. sent in by a medical professional or institution? @ -No Did you speak to anyone other than the patient for history? @ -No Did you review nursing and triage notes? @ -Yes, and I agree, it is accurate with regards to the patient's symptoms. Were old charts reviewed? @ -No Differential Diagnosis? @ -Differential Chest Pain: Stable Angina, Unstable Angina, STEMI, NSTEMI Aortic Dissection, Pneumothorax, Musculoskeletal, Esophageal Spasm GERD, Cholecystitis, Pancreatitis, Zoster, this is not meant to be an all-inclusive list. EKG interpreted by me (3pts min.)? @ -EKG interpreted by me demonstrating the following: Sinus rhythm. Ventricular rate 74 beats per minute, NH interval 127 ms, QRS duration 86 ms, QTC 394 ms. X-rays interpreted by me (1pt min.)? @ -Chest x-ray obtained, my interpretation identifies no localized consolidations or infiltrates. CT interpreted by me (1pt min.)? @ -CTA of the chest obtained. My interpretation identifies no evidence of a pulmonary embolus. U/S interpreted by me (1pt. min.)? @ -Not obtained What testing was considered but not performed? (CT, X-rays, U/S, labs)? Why? @ -None What meds were considered but not given? Why? @ -None Did you discuss the management of the patient with other professionals? @ -No Did you reconcile home meds? @ -No Was smoking cessation discussed for >3mins.? @ -No Was critical care preformed (if so, how long)? @ -No Were there social determinants of health that impacted care today? How? (Homelessness, low income, unemployed, alcoholism, drug addiction, transportation, low edu. Level, literacy, decrease access to med. care, alf, rehab)? @ -No Was there de-escalation of care discussed even if they declined? (Discuss DNR or withdrawal of care, Hospice)? @ -No What co-morbidities impacted this encounter? (DM, HTN, Smoking, COPD, CAD, Cancer, CVA, Hep., AIDS, mental health diagnosis, sleep apnea, morbid obesity)? @ -Morbid obesity Was patient admitted / discharged? @ -Discharged. Lab work obtained demonstrating an elevated d-dimer of 0.65 and no other actionable findings. Chest x-ray demonstrates mild cardiomegaly and no other findings. BNP negative for signs of CHF. CTA of the chest was then obtained. There was a suboptimal contrast bolus, however no definitive pulmonary embolus was identified. She also had some strandy atelectasis without any other acute process. Her symptoms were well controlled with Toradol. Patient has a heart score of 1-2. We did discuss admission for cardiac observation versus discharge home, and the patient was comfortable with discharge home at that point. Advised ibuprofen and Tylenol as needed for pain relief and close follow-up with her primary care provider. Undiagnosed new problem with uncertain prognosis? @ -None Drug Therapy requiring intensive monitoring for toxicity (Heparin, Nitro, Insulin, Cardizem)? @ -None Were any procedures done? @ -None Diagnosis/symptom? @ -Chest pain Acute, or Chronic, or Acute on Chronic? @ -Acute Uncomplicated (without systemic symptoms) or Complicated (systemic symptoms)? @ -Uncomplicated Side effects of treatment? @ -None Exacerbation, Progression, or Severe Exacerbation] @ -Not applicable Poses a threat to life or bodily function? @ -Unlikely Return precautions reviewed in depth, the patient is instructed to return to the emergency department with any new, worsening, or concerning symptoms. Patient verbalized understanding. This case was discussed in detail with the attending ED physician, Dr. Nixon. Presentation, findings, and treatment plan discussed in detail as well. Disposition Clinical Impression: Chest pain Disposition: HOME SELF-CARE Instructions (If sedation given, give patient instructions): Chest Pain (ED) Additional Instructions: Return to the emergency department with any new, worsening, or concerning symptoms. Alternate with ibuprofen and Tylenol as needed for pain relief. Follow up with your primary care provider in 1-2 days. Is patient prescribed a controlled substance at d/c from ED?: No Referrals: Holden Rose MD [Primary Care Provider] - 1-2 days
[2023-02-23 15:10] LABS: Basophils % (A) 0 %; Eosinophils # (A) 0.2 k/uL (0-0.7); Eosinophils % (A) 2 %; HCT 39.1 % (34.0-46.0); HGB 12.6 gm/dL (11.4-16.0); Lymphocytes # (A) 1.5 k/uL (1.0-4.8); Lymphocytes % (A) 14 %; MCH 28.7 pg (25.0-35.0); MCHC 32.2 g/dL (31.0-37.0); MCV 89.3 fL (80.0-100.0); Mean Platelet Volume 8.1; Monocytes # (A) 0.5 k/uL (0-1.0); Monocytes % (A) 5 %; Neutrophils # (A) 7.9 k/uL (1.3-7.7); Neutrophils % (A) 77 %; Platelet Count 304 k/uL (150-450); RBC 4.37 m/uL (3.80-5.40); RDW 14.7 % (11.5-15.5); WBC 10.3 k/uL (3.8-10.6)
--- NOTE | 2023-02-23 15:18 | XR ---
EXAMINATION TYPE: XR chest 2V DATE OF EXAM: 02/23/2023 COMPARISON: NONE HISTORY: Chest pain TECHNIQUE: Frontal and lateral views of the chest are obtained. FINDINGS: The heart is slightly prominent in size but the pulmonary vasculature is not congested. The lungs are clear of consolidative, interstitial masslike opacity. There is no pleural effusion or pneumothorax. The osseous structures are intact. IMPRESSION: Suggestion of mild cardiomegaly with no other significant abnormality seen.
[2023-02-23 15:19] LABS: ALT 42 U/L (4-34); AST 33 U/L (14-36); African American GFR (CKD) >90 (>60 ml/min/1.73 sqM); Albumin 3.9 g/dL (3.5-5.0); Alkaline Phosphatase 105 U/L (38-126); Amylase 38 U/L (30-110); Anion Gap 10 mmol/L; Blood Urea Nitrogen 21 mg/dL (7-17); Calcium 9.2 mg/dL (8.4-10.2); Carbon Dioxide 25 mmol/L (22-30); Chloride 104 mmol/L (98-107); Glucose 89 mg/dL (74-99); Lipase 49 U/L (23-300); Magnesium 2.3 mg/dL (1.6-2.3); Non-African American GFR(CKD) >90 (>60 ml/min/1.73 sqM); Potassium 4.1 mmol/L (3.5-5.1); Sodium 139 mmol/L (137-145); Total Bilirubin 0.5 mg/dL (0.2-1.3)
[2023-02-23 15:28] LABS: INR 0.9 (<1.2); Prothrombin Time 9.7 sec (10.0-12.5)
[2023-02-23] MEDS ORDERED: FAMOTIDINE 20 MG/2 ML VIAL IV STA (15:55)
[2023-02-23] MEDS ORDERED: diphenhydrAMINE 50 MG/ML 1 ML VIAL IVP STA (15:55)
[2023-02-23] MEDS ORDERED: methylPREDNISolone SOD SUCCI 125 MG/2 ML VIAL IV STA (15:55)
--- NOTE | 2023-02-23 17:42 | CT ---
EXAMINATION TYPE: CT chest angio for PE DATE OF EXAM: 02/23/2023 COMPARISON: None HISTORY: 42-year-old female with Chest pain, elevated d-dimer TECHNIQUE: Contiguous axial scanning of the chest performed with IV Contrast, patient injected with 1 00ML mL of Isovue 370. Coronal and sagittal MIP reconstructions performed. CT DLP: 1044.5 mGycm Automated exposure control for dose reduction was used. FINDINGS: The heart is normal size without pericardial effusion. No flattening of the interventricular septum r eflux of contrast into the hepatic veins. Ureters normal caliber with bovine configuration to the aortic arch. No thoracic lymph adenopathy by CT size criteria. There is suboptimal contrast bolus with enhancement of only to 18 Hounsfield units of the pulmonary a rteries. Within this limitation, no definite pulmonary embolus is seen. Strandy dependent atelectasis is present. No consolidation or pleural effusion. Tiny hiatal hernia. Diffuse low-attenuation of the hepatic parenchyma. Cholecystectomy clips. Visualized upper abdomen ot herwise shows no gross abnormality. No osseous destructive process. Slight dextroconvex curvature of the thoracic spine may be positional . IMPRESSION: 1. SUBOPTIMAL CONTRAST BOLUS. NO DEFINITE PULMONARY EMBOLUS IS SEEN. 2. SOME MILD STRANDY DEPENDENT ATELECTASIS. OTHERWISE, NO ACUTE PULMONARY PROCESS. 3. TINY HIATAL HERNIA AND AT LEAST MODERATE HEPATIC STEATOSIS.
[2023-02-23] MEDS ORDERED: ACET/COD 300 MG/30 MG STARTER PACK 6 TAB BTL PO STA (17:49)
[2023-02-23] MEDS ORDERED: IBUPROFEN 600 MG STARTER PACK 4 TAB BTL PO STA (17:49)
[2023-02-23 18:31] VITALS: RESP 18
[2023-02-23 18:54] VITALS: BP 134/84; PULSE 80
== END 2023-02-23 18:40 | disposition home or self-care (01) ==
LOC: EC 14:05
DX: I51.7 Cardiomegaly (principal); J98.11 Atelectasis; E66.01 Morbid (severe) obesity due to excess calories; F31.9 Bipolar disorder, unspecified; F41.9 Anxiety disorder, unspecified; Z68.42 Body mass index [BMI] 45.0-49.9, adult; Z79.899 Other long term (current) drug therapy; Z88.0 Allergy status to penicillin; Z91.041 Radiographic dye allergy status; Z91.018 Allergy to other foods; Z87.891 Personal history of nicotine dependence; Z90.49 Acquired absence of other specified parts of digestive tract
CPT/HCPCS: 36415; 93005; 85379; 83880; 80053; 82150; 83690; 83735; 84484; 85025; 85610; 85730; 71046; 71275; 99285; 96374; 96375 ×3; J2930; J1200; J3490; J1885; Q9967

== ENCOUNTER → 2023-06-19 | Outpatient (CLI) | payer BC ==
--- NOTE | 2023-06-21 12:54 | MM ---
Reason for Exam: Screening (asymptomatic). Last mammogram was performed 1 year(s) and 1 month(s) ago. Patient History: Menarche at age 13. First Full-Term at age 21. Premenopausal. Patient has history of breast feeding. Maternal aunt had breast cancer. Mother had ovarian cancer at or over age 50. Last menstrual period: 06/05/2023 Risk Values: Shavonne 5 year model risk: 0.4%. NCI Lifetime model risk: 8.0%. Prior Study Comparison: 06/14/2022 Bilateral MG screening mammo w CAD, [facility]. Tissue Density: The breasts are heterogeneously dense, which may obscure small masses. Findings: Analyzed By CAD. There is no suspicious group of microcalcifications or new suspicious mass in either breast. Overall Assessment: Negative, BI-RAD 1 Management: Screening Mammogram of both breasts in 1 year. . Patient should continue monthly self-breast exams. A clinical breast exam by your physician is recommended on an annual basis. This exam should not preclude additional follow-up of suspicious palpable abnormalities. Note on Shavonne scores and lifetime risk: 1. A Shavonne score greater than 3% is considered moderate risk. If this is the case, consider specialist referral to assess eligibility for a risk reducing agent. 2. If overall lifetime risk for the development of breast cancer is 20% or higher, the patient may qualify for future screening with alternating mammogram and breast MRI. Electronically signed and approved by: Sandeep Gatica M.D. Radiologis
== END | disposition home or self-care (01) ==
LOC: RADMAMWWP 08:02
PROVIDERS: ATTEND Family Medicine
DX: Z12.31 Encounter for screening mammogram for malignant neoplasm of breast (principal); Z80.3 Family history of malignant neoplasm of breast
CPT/HCPCS: 77063; 77067

== ENCOUNTER 2023-06-23 12:18 | Emergency (ER) | payer BC ==
--- NOTE | 2023-06-23 12:23 | ED ---
Nausea/Vomiting/Diarrhea HPI - General Chief complaint: Nausea/Vomiting/Diarrhea Stated complaint: Vomiting Time Seen by Provider: 06/23/23 12:22 Source: patient, RN notes reviewed Mode of arrival: ambulatory Limitations: no limitations - History of Present Illness Initial comments: This is a 42-year-old female who presents to the emergency department with chief complaint of nausea, vomiting, diarrhea bodyaches over the past 4 days. States that symptoms have been out of nowhere and is also been associated with cold sweats and diffuse abdominal pain. Has had a difficult time keeping down food and liquids over the past few days and states that she is having multiple episodes of diarrhea per day. Patient denies hematemesis, hematochezia, mucus in stools, dark or tarry stools. Patient states she had gallbladder removal surgery 2 to 3 years ago with no complications. She has taken Tylenol and Motrin at home. - Related Data Home Medications Medication Instructions Recorded Confirmed ARIPiprazole [Abilify] 5 mg PO HS 01/07/19 02/23/23 FLUoxetine HCL [PROzac] 80 mg PO DAILY 01/07/19 02/23/23 clonazePAM 2 mg PO HS 01/07/19 02/23/23 clonazePAM [KlonoPIN] 0.5 mg PO DAILY 01/07/19 02/23/23 Acetaminophen Tab [Tylenol Tab] 1,000 mg PO Q6H PRN 02/23/23 02/23/23 Oxybutynin ER [Ditropan XL] 10 mg PO DAILY 02/23/23 02/23/23 Pantoprazole [Protonix] 40 mg PO DAILY 02/23/23 02/23/23 Previous Rx's Medication Instructions Recorded Ondansetron Odt [Zofran Odt] 4 mg PO Q8HR PRN #10 tab 06/23/23 Sulfamethox-Tmp 800-160Mg [Bactrim 1 each PO Q12HR #20 tab 06/23/23 Ds] metroNIDAZOLE [Flagyl] 500 mg PO TID #30 tab 06/23/23 Allergies Allergy/AdvReac Type Severity Reaction Status Date / Time amoxicillin Allergy Anaphylaxis Verified 06/23/23 12:22 & Rash all over Iodinated Contrast Media Allergy Anaphylaxis Verified 06/23/23 12:22 & Rash all over Penicillins Allergy Rash/Hives Verified 06/23/23 12:22 all over kiwi AdvReac Nausea & Verified 06/23/23 12:22 Vomiting & Rash Review of Systems ROS Statement: Those systems with pertinent positive or pertinent negative responses have been documented in the HPI. ROS Other: All systems not noted in ROS Statement are negative. Past Medical History Past Medical History: No Reported History Additional Past Medical History / Comment(s): OCD, Anxiety celiac History of Any Multi-Drug Resistant Organisms: None Reported Past Surgical History: Cholecystectomy Past Psychological History: Anxiety, Bipolar, Depression Smoking Status: Former smoker Past Alcohol Use History: None Reported Past Drug Use History: None Reported General Exam Limitations: no limitations General appearance: alert, obese Head exam: Present: atraumatic, normocephalic, normal inspection Eye exam: Present: normal appearance, PERRL, EOMI. Absent: scleral icterus, conjunctival injection, periorbital swelling ENT exam: Present: normal exam, mucous membranes moist Neck exam: Present: normal inspection. Absent: tenderness, meningismus, lymphadenopathy Respiratory exam: Present: normal lung sounds bilaterally. Absent: respiratory distress, wheezes, rales, rhonchi, stridor Cardiovascular Exam: Present: regular rate, normal rhythm, normal heart sounds. Absent: systolic murmur, diastolic murmur, rubs, gallop, clicks GI/Abdominal exam: Present: soft, tenderness (diffuse , worse on RLQ and LLQ), guarding, rebound. Absent: rigid Extremities exam: Present: normal inspection, full ROM, normal capillary refill. Absent: tenderness, pedal edema, joint swelling, calf tenderness Back exam: Present: normal inspection Neurological exam: Present: alert, oriented X3, CN II-XII intact Psychiatric exam: Present: normal affect, normal mood Skin exam: Present: warm, dry, intact, normal color. Absent: rash Course Vital Signs 06/23/23 06/23/23 12:19 15:34 Temperature 97.6 F Pulse Rate 108 H 78 Respiratory 18 18 Rate Blood Pressure 125/86 122/76 O2 Sat by Pulse 98 98 Oximetry Medical Decision Making - Medical Decision Making Was pt. sent in by a medical professional or institution (, PA, SEED CORE OPERATOR, urgent care, hospital, or long-term...) When possible be specific @ -No Did you speak to anyone other than the patient for history (EMS, parent, family, police, friend...)? What history was obtained from this source @ -No Did you review nursing and triage notes (agree or disagree)? Why? @ -I reviewed and agree with nursing and triage notes Were old charts reviewed (outside hosp., previous admission, EMS record, old EKG, old radiological studies, urgent care reports/EKG's, long-term records)? Report findings @ -No old charts were reviewed Differential Diagnosis (chest pain, altered mental status, abdominal pain women, abdominal pain men, vaginal bleeding, weakness, fever, dyspnea, syncope, headache, dizziness, GI bleed, back pain, seizure, CVA, palpatations, mental health, musculoskeletal)? @ -Differential Abdominal Pain Women: Appendicitis, Cholecystitis, diverticulosis, ischemic bowel, pancreatitis, hepatitis, UTI, gastroenteritis, AAA, incarcerated hernia, bowel obstruction, constipation, inflammatory bowel, hepatitis, peptic ulcer disease, splenic inf arction, perforated viscus, vulvitis, ovarian torsion, PID, kidney stone, placenta abruption, this is not meant to be an all-inclusive list EKG interpreted by me (3pts min.). @ -None X-rays interpreted by me (1pt min.). @ -None done CT interpreted by me (1pt min.). @ -CT abdomen pelvis without contrast reveals reflect infectious enterocolitis with possibilities including ischemic and inflammatory causes potentially acute appendicitis U/S interpreted by me (1pt. min.). @ -None done What testing was considered but not performed or refused? (CT, X-rays, U/S, labs)? Why? @ -None What meds were considered but not given or refused? Why? @ -None Did you discuss the management of the patient with other professionals (professionals i.e. , PA, SEED CORE OPERATOR, lab, RT, psych nurse, director social service, bellows filler, teacher, court security officer, ed case manager)? Give summary @ -No Was smoking cessation discussed for >3mins.? @ -No Was critical care preformed (if so, how long)? @ -No Were there social determinants of health that impacted care today? How? (Homelessness, low income, unemployed, alcoholism, drug addiction, transportation, low edu. Level, literacy, decrease access to med. care, halfway, r ehab)? @ -No Was there de-escalation of care discussed even if they declined (Discuss DNR or withdrawal of care, Hospice)? DNR status @ -No What co-morbidities impacted this encounter? (DM, HTN, Smoking, COPD, CAD, Cancer, CVA, ARF, Chemo, Hep., AIDS, mental health diagnosis, sleep apnea, morbid obesity)? @ -obesity Was patient admitted / discharged? Hospital course, mention meds given and route, prescriptions, significant lab abnormalities, going to OR and other pertinent info. @ -Discharged. 42-year-old female with diffuse abdominal pain, diarrhea nausea and vomiting. On physical exam patient was found to have diffuse abdominal pain with rebound tenderness, nonrigid. Patient was started on 1 L fluid bolus and given IV push Zofran. Laboratory results ordered. Laboratory results unremarkable for acute leukocytosis or electrolyte abnormalities, patient negative for COVID, flu, RSV. At this time patient was sent for abdominal CT due to continuous abdominal pain and multiple episodes of diarrhea while in the emergency department. CT was without contrast due to patient being allergic to contrast. CT results remarkable for infective enterocolitis. CT results noted possible appendicitis, at this time low clinical suspicion for appendicitis due to patient's symptoms being over the last 4 days and diffuse, and nonelevated blood cell count. Patient found to have infectious urine with red blood cells, white blood cells, bloody appearance. Patient will be treated for enterocolitis with Bactrim and Flagyl, which will subsequently cover for urinary tract infection, patient additionally given prescription of Zofran for nausea.. Patient also provided discharge with GI referral for further intervention. Stool sample sent. This case with Dr. Serna agreeable with plan and for discharge Undiagnosed new problem with uncertain prognosis? @ -No Drug Therapy requiring intensive monitoring for toxicity (Heparin, Nitro, Insulin, Cardizem)? @ -No Were any procedures done? @ -No Diagnosis/symptom? @ -Cystitis, infective enterocolitis, nausea, vomiting, diarrhea Acute, or Chronic, or Acute on Chronic? @ -acute Uncomplicated (without systemic symptoms) or Complicated (systemic symptoms)? @ -uncomplicated Side effects of treatment? @ -No Exacerbation, Progression, or Severe Exacerbation? @ -No Poses a threat to life or bodily function? How? (Chest pain, [place], [place], pneumonia, PE, COPD, DKA, ARF, appy, cholecystitis, CVA, Diverticulitis, Homicidal, Suicidal, threat to staff... and all critical care pts) @ -No - Lab Data Result diagrams: 06/23/23 12:43 06/23/23 12:43 Lab Results 06/23/23 06/23/23 06/23/23 Range/Units 12:43 12:43 12:43 WBC 8.1 (3.8-10.6) k/uL RBC 4.94 (3.80-5.40) m/uL Hgb 13.6 (11.4-16.0) gm/dL Hct 44.5 (34.0-46.0) % MCV 90.1 (80.0-100.0) fL MCH 27.4 (25.0-35.0) pg MCHC 30.5 L (31.0-37.0) g/dL RDW 15.3 (11.5-15.5) % Plt Count 295 (150-450) k/uL MPV 8.1 Neutrophils % 74 % Lymphocytes % 15 % Monocytes % 7 % Eosinophils % 2 % Basophils % 1 % Neutrophils # 6.0 (1.3-7.7) k/uL Lymphocytes # 1.3 (1.0-4.8) k/uL Monocytes # 0.6 (0-1.0) k/uL Eosinophils # 0.1 (0-0.7) k/uL Basophils # 0.0 (0-0.2) k/uL Sodium 142 (137-145) mmol/L Potassium 3.9 (3.5-5.1) mmol/L Chloride 108 H (98-107) mmol/L Carbon Dioxide 27 (22-30) mmol/L Anion Gap 7 mmol/L BUN 15 (7-17) mg/dL Creatinine 0.93 (0.52-1.04) mg/dL Est GFR (CKD-EPI)AfAm 90 (>60 ml/min/1.73 sqM) Est GFR (CKD-EPI)NonAf 78 (>60 ml/min/1.73 sqM) Glucose 102 H (74-99) mg/dL Calcium 9.1 (8.4-10.2) mg/dL Total Bilirubin 0.5 (0.2-1.3) mg/dL AST 31 (14-36) U/L ALT 31 (4-34) U/L Alkaline Phosphatase 118 (38-126) U/L Total Protein 7.0 (6.3-8.2) g/dL Albumin 3.9 (3.5-5.0) g/dL Amylase 47 (30-110) U/L Lipase 34 (23-300) U/L Urine Color Light Brown Urine Appearance Bloody H (Clear) Urine RBC >182 H (0-5) /hpf Urine WBC >182 H (0-5) /hpf Urine WBC Clumps Few H (None) /hpf Ur Squamous Epith Cells 16 H (0-4) /hpf Urine Bacteria Few H (None) /hpf Urine Mucus Many H (None) /hpf Influenza Type A (PCR) (Not Detectd) Influenza Type B (PCR) (Not Detectd) RSV (PCR) (Not Detectd) SARS-CoV-2 (PCR) (Not Detectd) 06/23/23 Range/Units 12:43 WBC (3.8-10.6) k/uL RBC (3.80-5.40) m/uL Hgb (11.4-16.0) gm/dL Hct (34.0-46.0) % MCV (80.0-100.0) fL MCH (25.0-35.0) pg MCHC (31.0-37.0) g/dL RDW (11.5-15.5) % Plt Count (150-450) k/uL MPV Neutrophils % % Lymphocytes % % Monocytes % % Eosinophils % % Basophils % % Neutrophils # (1.3-7.7) k/uL Lymphocytes # (1.0-4.8) k/uL Monocytes # (0-1.0) k/uL Eosinophils # (0-0.7) k/uL Basophils # (0-0.2) k/uL Sodium (137-145) mmol/L Potassium (3.5-5.1) mmol/L Chloride (98-107) mmol/L Carbon Dioxide (22-30) mmol/L Anion Gap mmol/L BUN (7-17) mg/dL Creatinine (0.52-1.04) mg/dL Est GFR (CKD-EPI)AfAm (>60 ml/min/1.73 sqM) Est GFR (CKD-EPI)NonAf (>60 ml/min/1.73 sqM) Glucose (74-99) mg/dL Calcium (8.4-10.2) mg/dL Total Bilirubin (0.2-1.3) mg/dL AST (14-36) U/L ALT (4-34) U/L Alkaline Phosphatase (38-126) U/L Total Protein (6.3-8.2) g/dL Albumin (3.5-5.0) g/dL Amylase (30-110) U/L Lipase (23-300) U/L Urine Color Urine Appearance (Clear) Urine RBC (0-5) /hpf Urine WBC (0-5) /hpf Urine WBC Clumps (None) /hpf Ur Squamous Epith Cells (0-4) /hpf Urine Bacteria (None) /hpf Urine Mucus (None) /hpf Influenza Type A (PCR) Not Detected (Not Detectd) Influenza Type B (PCR) Not Detected (Not Detectd) RSV (PCR) Not Detected (Not Detectd) SARS-CoV-2 (PCR) Not Detected (Not Detectd) Disposition Clinical Impression: Enterocolitis, Cystitis Narrative: Please return to the Emergency Department if symptoms worsen or any other concerns. Complete full course of both antibiotics as prescribed. Follow-up with GI referral provided with discharge instructions. Disposition: HOME SELF-CARE Condition: Good Instructions (If sedation given, give patient instructions): Colitis (ED) Prescriptions: Sulfamethox-Tmp 800-160Mg [Bactrim Ds] 1 each PO Q12HR #20 tab metroNIDAZOLE [Flagyl] 500 mg PO TID #30 tab Ondansetron Odt [Zofran Odt] 4 mg PO Q8HR PRN #10 tab PRN Reason: Nausea Is patient prescribed a controlled substance at d/c from ED?: No Referrals: Holden Rose MD [Primary Care Provider] - 1-2 days Val Leach MD [STAFF PHYSICIAN] - 1-2 days Time of Disposition: 14:48
[2023-06-23] MEDS: ONDANSETRON 4 MG/2 ML VIAL IVP STA (12:49)
[2023-06-23] MEDS: SODIUM CHLORIDE 0.9% 2,000 ML IV STA (12:51)
[2023-06-23 13:07] LABS: ALT 31 U/L (4-34); AST 31 U/L (14-36); African American GFR (CKD) 90 (>60 ml/min/1.73 sqM); Albumin 3.9 g/dL (3.5-5.0); Alkaline Phosphatase 118 U/L (38-126); Amylase 47 U/L (30-110); Anion Gap 7 mmol/L; Blood Urea Nitrogen 15 mg/dL (7-17); Calcium 9.1 mg/dL (8.4-10.2); Carbon Dioxide 27 mmol/L (22-30); Chloride 108 mmol/L (98-107); Glucose 102 mg/dL (74-99); Lipase 34 U/L (23-300); Non-African American GFR(CKD) 78 (>60 ml/min/1.73 sqM); Potassium 3.9 mmol/L (3.5-5.1); Sodium 142 mmol/L (137-145); Total Bilirubin 0.5 mg/dL (0.2-1.3)
[2023-06-23 13:19] LABS: Basophils % (A) 1 %; Eosinophils # (A) 0.1 k/uL (0-0.7); Eosinophils % (A) 2 %; HCT 44.5 % (34.0-46.0); HGB 13.6 gm/dL (11.4-16.0); Lymphocytes # (A) 1.3 k/uL (1.0-4.8); Lymphocytes % (A) 15 %; MCH 27.4 pg (25.0-35.0); MCHC 30.5 g/dL (31.0-37.0); MCV 90.1 fL (80.0-100.0); Mean Platelet Volume 8.1; Monocytes # (A) 0.6 k/uL (0-1.0); Monocytes % (A) 7 %; Neutrophils % (A) 74 %; Platelet Count 295 k/uL (150-450); RBC 4.94 m/uL (3.80-5.40); RDW 15.3 % (11.5-15.5); WBC 8.1 k/uL (3.8-10.6)
[2023-06-23 13:24] VITALS: RESP 18; TEMP 97.6
--- NOTE | 2023-06-23 14:03 | CT ---
Clinical EXAMINATION TYPE: CT abdomen pelvis wo con DATE OF EXAM: 06/23/2023 COMPARISON: HISTORY: Abdominal pain, nausea and vomiting CT DLP: 1627.1 mGycm Examination of the solid and hollow viscera is limited given the lack of contrast. FINDINGS: LUNG BASES: No evidence for nodule. No evidence for infiltrate. LIVER/GB: The gallbladder is unremarkable. No space-occupying hepatic lesion. PANCREAS: No pancreatic mass identified. No inflammatory process seen. SPLEEN: No evidence for splenomegaly. No intrasplenic lesions seen. ADRENALS: No adrenal nodules identified. No evidence for thickening. KIDNEYS: No evidence for renal mass. No nephrolithiasis. No hydronephrosis. BOWEL: There is ileal and right hemicolonic wall thickening as well as engorgement of the mesentery. Mild surrounding fat attenuation is seen as well. There is a nubbin of appendix visualized axial imag e (62 of 109) and coronal image 53 of 129 in which the appendix appears within normal limits. The rem ainder of the appendix however is not accounted for. The findings could reflect infectious enterocoli tis. Additional possibilities include ischemic and inflammatory causes. Secondary inflammatory change s secondary to acute appendicitis would be difficult to exclude however as noted the entirety of the appendix is not visualized. There is no evidence of abscess or free air. Lymph nodes: No evidence for adenopathy greater than 1 cm. Abdominal aorta: Atheromatous changes seen. No evidence for aneurysm. Genital organs: No significant abnormality. Other: No significant abnormality. IMPRESSION: The findings could reflect infectious enterocolitis. Additional possibilities include ischemic and in flammatory causes. Secondary inflammatory changes secondary to acute appendicitis would be difficult to exclude as noted the entirety of the appendix is not visualized. SEE ABOVE.
[2023-06-23 15:17] LABS: Bacteria,Urine Few /hpf; Mucus,Urine Many /hpf; RBC,Urine >182 /hpf (0-5); Squamous Epithelial Cell,Urine 16 /hpf (0-4); WBC,Urine >182 /hpf (0-5)
[2023-06-23 15:18] LABS: Appearance,Urine Bloody (Clear)
[2023-06-23 15:19] LABS: Color,Urine Light Brown
[2023-06-23 15:51] VITALS: BP 122/76; PULSE 78
== END 2023-06-23 15:34 | disposition home or self-care (01) ==
LOC: EC 12:18
DX: A09 Infectious gastroenteritis and colitis, unspecified (principal); N30.90 Cystitis, unspecified without hematuria; E66.9 Obesity, unspecified; Z88.0 Allergy status to penicillin; Z91.041 Radiographic dye allergy status; Z91.018 Allergy to other foods; Z68.43 Body mass index [BMI] 50.0-59.9, adult; Z90.49 Acquired absence of other specified parts of digestive tract; Z87.891 Personal history of nicotine dependence
CPT/HCPCS: 36415; 80053; 82150; 83690; 85025; 81001; 87045; 87046; 87636; 74176; 99284; 96374; 96361 ×2; J2405

== ENCOUNTER 2024-02-20 12:01 | Emergency (ER) | payer BC ==
[2024-02-20 12:18] VITALS: TEMP 98.4
[2024-02-20] MEDS: KETOROLAC 15 MG/ML 1 ML VIAL IM STA (12:50)
--- NOTE | 2024-02-20 13:00 | ED ---
General Adult HPI - General Chief complaint: Extremity Injury, Upper Stated complaint: L shoulder pain Time Seen by Provider: 02/20/24 12:20 Source: patient, RN notes reviewed, old records reviewed Mode of arrival: ambulatory Limitations: no limitations - History of Present Illness Initial comments: This is a 43-year-old female who presents to the emergency department stating she has some pain on the lateral chest wall under her armpit and a little bit in her shoulder. 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 Patient denies any blunt trauma. Patient denies any shortness of breath or chest pain. Patient states it is worse with movement or deep breathing. Patient denies any fever or chills. Patient states she has had an injury in this area before. The patient is already seen her primary medical care doctor for this earlier in the week - Related Data Home Medications Medication Instructions Recorded Confirmed ARIPiprazole [Abilify] 5 mg PO HS 01/07/19 02/23/23 FLUoxetine HCL [PROzac] 80 mg PO DAILY 01/07/19 02/23/23 clonazePAM 2 mg PO HS 01/07/19 02/23/23 clonazePAM [KlonoPIN] 0.5 mg PO DAILY 01/07/19 02/23/23 Acetaminophen Tab [Tylenol Tab] 1,000 mg PO Q6H PRN 02/23/23 02/23/23 Oxybutynin ER [Ditropan XL] 10 mg PO DAILY 02/23/23 02/23/23 Pantoprazole [Protonix] 40 mg PO DAILY 02/23/23 02/23/23 Previous Rx's Medication Instructions Recorded Ondansetron Odt [Zofran Odt] 4 mg PO Q8HR PRN #10 tab 06/23/23 Sulfamethox-Tmp 800-160Mg [Bactrim 1 each PO Q12HR #20 tab 06/23/23 Ds] metroNIDAZOLE [Flagyl] 500 mg PO TID #30 tab 06/23/23 Cyclobenzaprine [Flexeril] 10 mg PO BID #10 tab 02/20/24 Allergies Allergy/AdvReac Type Severity Reaction Status Date / Time amoxicillin Allergy Anaphylaxis Verified 02/20/24 12:18 & Rash all over Iodinated Contrast Media Allergy Anaphylaxis Verified 02/20/24 12:18 & Rash all over Penicillins Allergy Rash/Hives Verified 02/20/24 12:18 all over kiwi AdvReac Nausea & Verified 02/20/24 12:18 Vomiting & Rash Review of Systems ROS Statement: Those systems with pertinent positive or pertinent negative responses have been documented in the HPI. ROS Other: All systems not noted in ROS Statement are negative. Past Medical History Past Medical History: No Reported History Additional Past Medical History / Comment(s): OCD, Anxiety celiac History of Any Multi-Drug Resistant Organisms: None Reported Past Surgical History: Cholecystectomy Past Psychological History: Anxiety, Bipolar, Depression Smoking Status: Former smoker Past Alcohol Use History: None Reported Past Drug Use History: None Reported General Exam - General Exam Comments Initial Comments: GENERAL: Patient is well-developed and well-nourished. Patient is nontoxic and well- hydrated and is in mild distress. ENT: Neck is soft and supple. No significant lymphadenopathy is noted. Oropharynx is clear. Moist mucous membranes. Neck has full range of motion without eliciting any pain. EYES: The sclera were anicteric and conjunctiva were pink and moist. Extraocular movements were intact and pupils were equal round and reactive to light. Eyelids were unremarkable. PULMONARY: Unlabored respirations. Good breath sounds bilaterally. No audible rales rhonchi or wheezing was noted. CARDIOVASCULAR: There is a regular rate and rhythm without any murmurs gallops or rubs. Lateral chest wall tenderness just under the armpit on the left ABDOMEN: Soft and nontender with normal bowel sounds. SKIN: Skin is clear with no lesions or rashes and otherwise unremarkable. NEUROLOGIC: Patient is alert and oriented x3. Cranial nerves II through XII are grossly intact. Motor and sensory are also intact. Normal speech, volume and content. Symmetrical smile. MUSCULOSKELETAL: Patient had tenderness of the lateral chest wall just under the armpit. There was no rashes there was no lethargy was no swelling. It was reproducible with palpation. PSYCHIATRIC: Normal psychiatric evaluation. Limitations: no limitations Course Vital Signs 02/20/24 12:15 Temperature 98.4 F Pulse Rate 77 Respiratory 20 Rate Blood Pressure 115/63 O2 Sat by Pulse 98 Oximetry Medical Decision Making - Medical Decision Making EKG is interpreted by myself but EKG shows sinus rhythm at 63 bpm MO was 140 QRS is 98 QT interval 389 QTc is 396. Patient's EKG shows no ST segment elevation or depression. Was pt. sent in by a medical professional or institution ([facility], [facility], urgent ca re, hospital, or [place] [facility] facility...) When possible be specific @ -No Did you speak to anyone other than the patient for history (EMS, parent, family, police, friend...)? What history was obtained from this source @ -No Did you review nursing and triage notes (agree or disagree)? Why? @ -I reviewed and agree with nursing and triage notes Were old charts reviewed (outside hosp., previous admission, EMS record, old EKG, old radiological studies, urgent care reports/EKG's, [place] [facility] facility records)? Report findings @ -No old charts were reviewed Differential Diagnosis? @ -Rib fractures, shoulder strain, rotator cuff injury, this is not an all- inclusive list EKG interpreted by me (3pts min.). @ -As above X-rays interpreted by me (1pt min.). @ -Chest x-ray shows no acute normality, shoulder x-ray shows no acute abnormality CT interpreted by me (1pt min.). @ -None done U/S interpreted by me (1pt. min.). @ -None done What testing was considered but not performed or refused? (CT, X-rays, U/S, labs )? Why? @ -None What meds were considered but not given or refused? Why? @ -None Did you discuss the management of the patient with other professionals (professionals i.e. [facility], [facility], lab, RT, psych nurse, protective services social worker, cooler worker, teacher, chief client officer, continuous pillowcase cutter)? Give summary @ -No Was smoking cessation discussed for >3mins.? @ -No Was critical care preformed (if so, how long)? @ -No Were there social determinants of health that impacted care today? How? (Homelessness, low income, unemployed, alcoholism, drug addiction, transportation, low edu. Level, literacy, decrease access to med. care, nursing home, rehab)? @ -No Was there de-escalation of care discussed even if they declined (Discuss DNR or withdrawal of care, Hospice)? DNR status @ -No What co-morbidities impacted this encounter? (DM, HTN, Smoking, COPD, CAD, Cancer, CVA, ARF, Chemo, Hep., AIDS, mental health diagnosis, sleep apnea, morbid obesity)? @ -None Was patient admitted / discharged? Hospital course, mention meds given and route, prescriptions, significant lab abnormalities, going to OR and other pertinent info. @ -Patient received Toradol in the emergency department and will be sent home with some Flexeril. It appears that the pain is reproducible and hurts with movement. Undiagnosed new problem with uncertain prognosis? @ -No Drug Therapy requiring intensive monitoring for toxicity (Heparin, Nitro, Insulin, Cardizem)? @ -No Were any procedures done? @ -No Diagnosis/symptom? @ -Chest wall pain Acute, or Chronic, or Acute on Chronic? @ -Acute Uncomplicated (without systemic symptoms) or Complicated (systemic symptoms)? @ -Uncomplicated Side effects of treatment? @ -No Exacerbation, Progression, or Severe Exacerbation? @ -No Poses a threat to life or bodily function? How? (Chest pain, [place], [place], pneumonia, PE, COPD, DKA, ARF, appy, cholecystitis, CVA, Diverticulitis, Homicidal, Suicidal, threat to staff... and all critical care pts) @ -No Disposition Clinical Impression: Chest wall pain Disposition: HOME SELF-CARE Condition: Good Instructions (If sedation given, give patient instructions): Chest Wall Pain (ED) Prescriptions: Cyclobenzaprine [Flexeril] 10 mg PO BID #10 tab Is patient prescribed a controlled substance at d/c from ED?: No Referrals: Holden Rose MD [Primary Care Provider] - 1-2 days Time of Disposition: 13:35
--- NOTE | 2024-02-20 13:26 | XR ---
EXAMINATION TYPE: XR chest 2V DATE OF EXAM: 02/20/2024 1:22 PM COMPARISON: None. CLINICAL INDICATION: Female, 43 years old with history of Difficulty breathing , TECHNIQUE: XR chest 2V view(s) obtained. FINDINGS: The heart size is normal. The pulmonary vasculature is normal. The lungs are clear. IMPRESSION: 1. No acute pulmonary process. [facility], Workstation: [facility], 02/20/2024 1:24 PM
--- NOTE | 2024-02-20 13:27 | XR ---
EXAMINATION TYPE: XR shoulder complete LT DATE OF EXAM: 02/20/2024 1:23 PM COMPARISON: None. CLINICAL INDICATION: Female, 43 years old with history of Shoulder pain, TECHNIQUE: XR shoulder complete LT 3 view(s) obtained. FINDINGS: The humeral head articulates with the glenoid. The acromio-clavicular junction is normal. No acute fractures or dislocations are evident. A follow up study can be performed 7-10 days from acute trauma for continued pain. MRI can be perfor med if soft tissue evaluation would be of benefit. IMPRESSION: 1. No acute osseous shoulder abnormality. [facility], Workstation: [facility], 02/20/2024 1:25 PM
[2024-02-20 13:48] VITALS: BP 112/72; PULSE 74; RESP 18
== END 2024-02-20 13:48 | disposition home or self-care (01) ==
LOC: EC 12:01
DX: R07.89 Other chest pain (principal); Z87.891 Personal history of nicotine dependence; Z88.0 Allergy status to penicillin; Z91.041 Radiographic dye allergy status; Z91.018 Allergy to other foods
CPT/HCPCS: 93005; 73030; 71046; 99284; 96372; J1885